=== PATIENT | male | born 1970 | race Caucasian/White ===

== ENCOUNTER 2016-04-12 11:04 | Inpatient (IN) | payer MEDICAID ==
--- NOTE | 2016-04-12 11:38 | EDPHY ---
H & P Stated Complaint: abd pain since yesterday-rlq Time Seen by Provider: 04/12/16 11:37 HPI/ROS: CHIEF COMPLAINT: Abdominal pain HISTORY OF PRESENT ILLNESS: The patient presents to the ED with a 2 day history of right lower quadrant pain. The patient denies vomiting or diarrhea. His pain is worsened over the past day. He denies recent fever cough or congestion. The patient is on medications for anxiety. He also is currently taking Xarelto for a DVT. His last dose of Xarelto was early this morning. The patient denies any dysuria or hematuria. He denies additional complaints. His pain is moderate to severe in nature. REVIEW OF SYSTEMS: A comprehensive 10 point review of systems is otherwise negative aside from elements mentioned in the history of present illness. Source: Patient Exam Limitations: No limitations - Personal History Current Tetanus/Diphtheria Vaccine: Unsure Current Tetanus Diphtheria and Acellular Pertussis (TDAP): Unsure - Medical/Surgical History Hx Asthma: No Hx Chronic Respiratory Disease: No Hx Diabetes: No Hx Cardiac Disease: No Hx Renal Disease: No Hx Cirrhosis: No Hx Alcoholism: No Hx HIV/AIDS: No Hx Splenectomy or Spleen Trauma: No Other PMH: Bipolar, anxiety - Social History Smoking Status: Current every day smoker - Physical Exam Exam: General Appearance: Alert, no distress Eyes: Pupils equal and round no pallor or injection ENT, Mouth: Mucous membranes moist Respiratory: There are no retractions, lungs are clear to auscultation Cardiovascular: Regular rate and rhythm Gastrointestinal: Tenderness to palpation in the right lower quadrant, mild rebound, mild guarding, no peritoneal signs Neurological: A&O, normal motor function, normal sensory exam, normal cranial nerves Skin: Warm and dry, no rashes Musculoskeletal: Neck is supple nontender Extremities: symmetrical, full range of motion Psychiatric: Patient is oriented X 3, there is no agitation Constitutional: Initial Vital Signs Temperature (C) 36.9 C 04/12/16 11:13 Heart Rate 110 H 04/12/16 11:13 Respiratory Rate 20 04/12/16 11:13 Blood Pressure 127/75 H 04/12/16 11:13 O2 Sat (%) 95 04/12/16 11:13 O2 Delivery Mode Room Air Allergies/Adverse Reactions: No Known Allergies Allergy (Unverified 02/08/16 14:12) Home Medications: Medication Instructions Recorded [place] Carbonate ER [Lithobid 300 300 mg PO DAILY 02/08/16 mg (*)] Rivaroxaban [Xarelto] 20 mg PO DAILY 02/08/16 Gabapentin [Neurontin 300 MG (*)] 300 mg PO TID 04/12/16 Ibuprofen [Motrin (*)] 200 - 400 mg PO Q6H PRN 04/12/16 Lurasidone HCl [Latuda] 40 mg PO DAILY 04/12/16 Medical Decision Making - Diagnostics Imaging: CT abdomen pelvis with IV contrast: Findings consistent with acute appendicitis are noted. Study results reported to me by Dr. Gerald Guadarrama. ED Course/Re-evaluation: The patient presents to the ED with 2 days of right-sided abdominal pain, leukocytosis and subjective fevers. The patient is currently anticoagulated with Xarelto for a DVT in his right leg. He does have a history of factor 5 Leiden. The patient does have evidence of appendicitis noted on his CT scan today. The patient did receive IV fluids and 1 mg of IV Invanz. Consultation was made with Dr. Tyler Knapp from General surgery who will evaluate the patient in the emergency department. Update at 3:30 p.m.: Patient has been seen by Dr. Knapp and will be taken to the operating room following a dose PCC to reverse the patient's current anticoagulation. Differential Diagnosis: Differential diagnosis considered includes ileitis, appendicitis, perforation, obstruction, abscess - Data Points Laboratory Results: Laboratory Results 04/12/16 11:25 04/12/16 11:25 04/12/16 04/12/16 11:45 11:25 WBC 17.83 H 10^3/uL (3.80-9.50) RBC 5.15 10^6/uL (4.40-6.38) Hgb 16.4 g/dL (13.7-17.5) Hct 47.4 % (40.0-51.0) MCV 92.0 fL (81.5-99.8) MCH 31.8 pg (27.9-34.1) MCHC 34.6 g/dL (32.4-36.7) RDW 13.1 % (11.5-15.2) Plt Count 257 10^3/uL (150-400) MPV 9.8 fL (8.7-11.7) Neut % (Auto) 86.8 H % (39.3-74.2) Lymph % (Auto) 5.4 L % (15.0-45.0) [place] % (Auto) 7.0 % (4.5-13.0) Eos % (Auto) 0.1 L % (0.6-7.6) Baso % (Auto) 0.3 % (0.3-1.7) Nucleat RBC Rel Count 0.0 % (0.0-0.2) Absolute Neuts (auto) 15.48 H 10^3/uL (1.70-6.50) Absolute Lymphs (auto) 0.96 L 10^3/uL (1.00-3.00) Absolute Monos (auto) 1.25 H 10^3/uL (0.30-0.80) Absolute Eos (auto) 0.01 L 10^3/uL (0.03-0.40) Absolute Basos (auto) 0.05 10^3/uL (0.02-0.10) Absolute Nucleated RBC 0.00 10^3/uL (0-0.01) Immature Gran % 0.4 % (0.0-1.1) Immature Gran # 0.08 10^3/uL (0.00-0.10) PT 24.2 H SEC (12.0-15.0) INR 2.15 H (0.83-1.16) Sodium 140 mEq/L (134-144) Potassium 4.0 mEq/L (3.5-5.2) Chloride 106 mEq/L (97-110) Carbon Dioxide 19 L mEq/l (22-31) Anion Gap 15 mEq/L (8-16) BUN 12 mg/dL (7-23) Creatinine 1.0 mg/dL (0.7-1.3) Estimated GFR > 60 Glucose 162 H mg/dL (70-100) Calcium 9.9 mg/dL (8.5-10.4) Total Bilirubin 0.9 mg/dL (0.1-1.4) Conjugated Bilirubin 0.3 mg/dL (0.0-0.5) Unconjugated Bilirubin 0.6 mg/dL (0.0-1.1) AST 20 IU/L (17-59) ALT 32 IU/L (21-72) Alkaline Phosphatase 62 IU/L (38-126) Total Protein 7.2 g/dL (6.3-8.2) Albumin 4.3 g/dL (3.5-5.0) Lipase 167.0 IU/L (23-300) [place] 0.3 L mEq/L (0.6-1.2) Medications Given: Discontinued Medications Hydromorphone HCl (Dilaudid) 1 mg IVP EDNOW ONE Stop: 04/12/16 13:54 Last Admin: 04/12/16 13:59 Dose: 1 mg Sodium Chloride (Ns) 1,000 mls @ 0 mls/hr IV ONCE ONE PRN Reason: Wide Open Stop: 04/12/16 11:43 Last Admin: 04/12/16 11:48 Dose: 1,000 mls Ertapenem 1 gm/ Sodium (Chloride) 100 mls @ 200 mls/hr IV EDNOW ONE PRN Reason: Protocol Stop: 04/12/16 14:41 Last Admin: 04/12/16 14:58 Dose: 100 mls Ondansetron HCl (Zofran) 4 mg IVP EDNOW ONE Stop: 04/12/16 13:54 Last Admin: 04/12/16 14:00 Dose: 4 mg Departure - Departure Disposition: [facility] Acute Clinical Impression: History of DVT (deep vein thrombosis) Acute appendicitis Qualifiers: Qualifier Code: (K35.3) Acute appendicitis with localized peritonitis Condition: Good
[2016-04-12] MEDS ORDERED: NS 1,000 ML IV ONE ×2 (11:42→15:22)
[2016-04-12 11:45] LABS: % IMMATURE GRANULYOCYTES 0.4 % (0.0-1.1); ABSOLUTE IMMATURE GRANULOCYTES 0.08 10^3/uL (0.00-0.10); ADD DIFF? NO; ADD MORPH? NO; ADD SCAN? NO; ATYPICAL LYMPHOCYTE FLAG 0 (0-99); FRAGMENT RBC FLAG 0 (0-99); HEMATOCRIT 47.4 % (40.0-51.0); HEMOGLOBIN 16.4 g/dL (13.7-17.5); LEFT SHIFT FLG 10 (0-99); LIPEMIA HEMOLYSIS FLAG 90 (0-99); MEAN CELL HEMOGLOBIN 31.8 pg (27.9-34.1); MEAN CELL HEMOGLOBIN CONCENTR. 34.6 g/dL (32.4-36.7); MEAN PLATELET VOLUME 9.8 fL (8.7-11.7); PLATELET CLUMPS FLAG 30 (0-99); PLATELET COUNT 257 10^3/uL (150-400); RED BLOOD CELL COUNT 5.15 10^6/uL (4.40-6.38); RED CELL DISTRIBUTION WIDTH 13.1 % (11.5-15.2)
[2016-04-12 12:01] LABS: ALANINE AMINOTRANSFERASE 32 IU/L (21-72); ALBUMIN 4.3 g/dL (3.5-5.0); ALKALINE PHOSPHATASE 62 IU/L (38-126); ANION GAP 15 mEq/L (8-16); ASPARTATE AMINOTRANSFERASE 20 IU/L (17-59); BILIRUBIN,TOTAL 0.9 mg/dL (0.1-1.4); BILIRUBIN-CONJUGATED 0.3 mg/dL (0.0-0.5); BILIRUBIN-UNCONJUGATED 0.6 mg/dL (0.0-1.1); CALCIUM 9.9 mg/dL (8.5-10.4); CARBON DIOXIDE 19 mEq/l (22-31); CHLORIDE 106 mEq/L (97-110); GLOMERULAR FILTRATION RATE > 60; GLUCOSE 162 mg/dL (70-100); SODIUM 140 mEq/L (134-144); TOTAL PROTEIN 7.2 g/dL (6.3-8.2)
[2016-04-12 12:23] LABS: LITHIUM 0.3 mEq/L (0.6-1.2)
[2016-04-12 12:28] LABS: INR 2.15 (0.83-1.16); PROTIME(PATIENT) 24.2 SEC (12.0-15.0)
[2016-04-12] MEDS ORDERED: IOPAMIDOL (ISOVUE-300) 50 ML VIAL IV ONE (13:17)
[2016-04-12] MEDS ORDERED: ONDANSETRON 4 MG/2 ML VIAL IVP ONE (13:53)
[2016-04-12] MEDS ORDERED: HYDROmorphONE/DILAUDID 1 MG/ML SYR IVP ONE (13:53)
[2016-04-12] MEDS ORDERED: ERTAPENEM 1 GM in NS 100 ML IV ONE (14:12)
--- NOTE | 2016-04-12 14:53 | CT ---
CT Scan of the Abdomen and Pelvis (With Contrast) April 12, 2016 Indication: Right lower quadrant pain for 2 days. Technique: No oral or rectal contrast. 90 mL of Isovue 300 were given intravenously by machine power injection. Multidetector helical CT imaging was performed from the diaphragm to the symphysis pubis. Dose reduction techniques were utilized. Findings: The abnormal appendix, measuring 1.5 cm in diameter, has increased mucosal enhancement and surrounding regional mesenteric edema. Additionally, a loop of ileum adjacent the inflamed appendix has mild wall thickening and increased serosal enhancement. No pneumoperitoneum, abscess, or fistula formation. Mild left-sided constipation. Otherwise normal bowel pattern. The liver, spleen, pancreas, gallbladder, adrenal glands, and kidneys are normal. No hydronephrosis o r ureteral calculi. The urinary bladder is normal. The portal vein is patent. No biliary dilation. The abdominal aorta is normal in caliber. No plaque. Lung bases are clear except for minimal posterior dependent atelectasis. No bone lesions. Impression: 1. Regional inflammation in the right lower quadrant involving the terminal ileum and appendix. Favor appendicitis with reactive inflammation of the ileum. 2. No abscess or evidence of perforation. Comment: Results were discussed with Dr. Darryl Peters at 2:05 p.m. on April 12, 2016.
[2016-04-12] MEDS ORDERED: HEPARIN 5,000 UNIT/0.5 ML SYR ONE (15:52)
[2016-04-12] MEDS ORDERED: ceFAZolin 1 GM/5 ML SYR ONE (15:52)
[2016-04-12] MEDS ORDERED: HUMAN PROTHROMBIN COMPLX IV ONE (16:00)
[2016-04-12] MEDS ORDERED: PROPOFOL/EMULSION 500 MG/50 ML BOTTLE IV ONE (16:16)
[2016-04-12] MEDS ORDERED: fentaNYL 250 MCG/5 ML INJ ONE (16:16)
[2016-04-12] MEDS ORDERED: ROCURONIUM 50 MG/5 ML VIAL ONE ×2 (16:17→17:46)
[2016-04-12] MEDS ORDERED: LIDOCAINE 2% 100 MG/5 ML SYR IVP ONE (16:17)
[2016-04-12] MEDS ORDERED: MIDAZOLAM 2 MG/2 ML VIAL ONE (16:26)
[2016-04-12] MEDS ORDERED: ACETAMINOPHEN 650 MG SUPP PR ONE (17:00)
--- NOTE | 2016-04-12 17:05 | GHP ---
[f rep st] HISTORY AND PHYSICAL DATE OF ADMISSION: 04/12/2016 HISTORY OF PRESENT ILLNESS: The patient presents with acute appendicitis. Yesterday, at 9:30, he woke up and noticed abdominal pain on awakening. He felt it was probably indigestion and notes that it was associated with nausea. For breakfast, he had 2 pieces of toast and tea, which is usual for him. At lunchtime, he had a decreased appetite and ate only mashed potatoes. At approximately 2-3 p.m., the pain moved to the right lower quadrant. He did have a normal dinner and no nausea. The pain increased in the right lower quadrant. It was also increasing in his back, which he attributed to "work." He went to sleep and woke up at approximately 2 a.m. and 4 a.m. secondary to the pain. At approximately 7:30 a.m. today, the pain was 10 times worse than it had been yesterday. He had difficulty standing up straight and complained bitterly of any bumps that were hit when he was riding in the car. His last bowel movement was yesterday. His last meal was at 11 a.m. this morning. He had half of a granola bar, half of a candy bar, and some Gatorade. He has not had a recent upper respiratory tract infection. He has not had any diarrhea. He has not had any travel outside the [place] or antibiotics in the last 6 months. There is no prior abdominal surgery. There are no prior similar symptoms. There is no history of inflammatory bowel disease. SOCIAL HISTORY: He smokes, starting at age 21 to present, 1/2 pack per day. He no longer drinks. ALLERGIES: He has no known drug allergies. PAST MEDICAL HISTORY: He is bipolar and does have anxiety. There is no history of rheumatic fever, tuberculosis, hepatitis, HIV, or transfusions. MEDICATIONS: He takes gabapentin for his anxiety at 300 mg 3 times a day. He takes Latuda, which is a mood stabilizer, 40 mg daily. He takes lithium carbonate 300 mg at bedtime and Xarelto 20 mg daily. PAST SURGICAL HISTORY: He has had no prior surgery. REVIEW OF SYSTEMS: He developed a clot in his calf over a year ago. Evaluation by his senior corporate accountant showed he had a factor V Leiden deficiency. He does were glasses because of his nearsightedness. He complains of a dry right naris. He complains that his arms go to sleep when he is sleeping on his right side or left side. There are no limits on his activities. No history of steroid use. FAMILY HISTORY: His mother is 72, alive and well. His father is 72 and has had cancer, but the patient is unsure as to what type of cancer it was. The patient is followed in by 2 paternal half brothers, age 32 and age 30. There are no bleeding disorders, clotting disorders, or difficulty with anesthesia in the patient's family. PHYSICAL EXAMINATION: He is awake, alert, and complaining of abdominal discomfort. He is tender with cough at McBurney's point at 5 on a scale of 1- 10. Bowel sounds are hypoactive. Obturator and psoas signs are negative. To palpation, left upper quadrant is 1, left mid abdomen is 1, left lower quadrant is 1, epigastrium is 1, periumbilical area is 3, suprapubic area is 4, right upper quadrant is 4, right mid abdomen is 9, right lower quadrant is 9, and it is 2 over the iliac crest. There is no cervical, supraclavicular, axillary or inguinal lymphadenopathy. Skull is normocephalic and atraumatic. He is awake, alert, oriented, and personable. Thyroid is not enlarged. His lungs are clear to auscultation. Cardiac exam shows S1, S2 to be normal. DIAGNOSTIC STUDIES: CT scan shows a prominent appendix which has a hyperemic wall and distention. It is located in the right lower quadrant going from posterior to anterior. His INR is 2.15. His white count is 17.8 with 87% neutrophils. His hematocrit is 47. His platelet count is 257. His glucose is 162. His lithium level is 0.3. IMPRESSION/PLAN: I feel this patient has acute unruptured appendicitis. He is on Xarelto, and there is no perfect antidote at this point. I will use PCC as my best alternative. He will receive Xarelto just prior to surgery. He understands that bleeding may be an issue. I will plan to leave a ANGELA drain in place after surgery. He has received [employer]. /[id number]/MODL MTDD
[2016-04-12] MEDS ORDERED: DEXAMETHASONE 4 MG/ML VIAL ONE (17:46)
[2016-04-12] MEDS ORDERED: ONDANSETRON 4 MG/2 ML VIAL ONE (17:46)
[2016-04-12] MEDS ORDERED: fentaNYL 100 MCG/2 ML INJ ONE ×2 (18:25→19:28)
[2016-04-12] MEDS ORDERED: GLYCOPYRROLATE 0.2 MG/1 ML VIAL ONE (18:38)
[2016-04-12] MEDS ORDERED: NEOSTIGMINE METHYLSULFATE 5 MG/5 ML SYR ONE (18:38)
[2016-04-12] MEDS ORDERED: ONDANSETRON 4 MG/2 ML VIAL IVP PRN (19:17)
[2016-04-12] MEDS ORDERED: KETOROLAC 30 MG/1 ML SDV ONE (19:28)
--- NOTE | 2016-04-12 19:32 | POSTOPPROG ---
Post Op Note Date of Operation: 04/12/16 Surgeon: Rey Knapp Anesthesia: GET(General Endotracheal) Pre-op Diagnosis: acute appendicitis Post-op Diagnosis: acute gtangreneous appendicitis with peritonitis Indication: acute appendicitis Procedure: laparoscopic appendectomy Findings: acute gtangreneous appendicitis with peritonitis Inf/Abcess present in the surg proc area at time of surgery?: Yes Depth: Organ Space (approximately 20cc of purulent fluid was aspirated from pelvis and sent for culture) EBL: Minimal Complications: none Drains: Jai Bejarano (10 Flat ANGELA in pelvis) Specimen(s): appendix - proximal and distal - two specimens
--- NOTE | 2016-04-12 20:16 | GOP ---
[f rep st] OPERATIVE REPORT DATE OF OPERATION: 04/12/2016 SURGEON: Rey Knapp MD ANESTHESIA: General endotracheal. PREOPERATIVE DIAGNOSIS: Acute appendicitis. POSTOPERATIVE DIAGNOSIS: Acute gangrenous appendicitis with peritonitis. PROCEDURE PERFORMED: Laparoscopic appendectomy. FINDINGS: Acute gangrenous appendicitis with peritonitis. ESTIMATED BLOOD LOSS: Minimal. INDICATIONS: Acute appendicitis. DESCRIPTION OF PROCEDURE: The patient was placed on the operating table in supine position. After induction of adequate general endotracheal anesthesia, the abdomen was carefully clipped, prepped and draped. A surgical time-out was carried out and agreed to by all members of the operative team. A curvilinear incision was planned in the inferior umbilical fold. The skin was elevated and incised. The incision was deepened with Bovie electrocautery. A spreading technique was used to expose the right and left anterior rectus sheath, which was elevated with Allis clamps. The fascia was divided in the midline. A pursestring of #0 PDS was placed. An 11/12 disposable Sarath trocar was positioned. Intra-abdominal insufflation was carried out to 15 mmHg at high flow. A 5 mm left lower quadrant port was placed as was a 5 mm suprapubic midline port in the low hypogastrium. On initial examination, there was purulent fluid in the pelvis. This was carefully aspirated and sent for cultures. Irrigation was carried out with heparin and Ancef containing irrigant. The patient was positioned in a 30-degree Trendelenburg position. He was then rotated 5 degrees to the left. There was an intense inflammatory response in the right lower quadrant. The tip of the appendix could be visualized. A careful and tedious dissection was carried out using a careful spreading technique. Adhesions were carefully elevated and transected with the Harmonic Scalpel. The tip of the appendix was quite enlarged and gangrenous. A small amount of leakage was occurring. This was carefully aspirated. At this point, I was able to free enough of the appendix so that I could now transect the involved distal 1/3 with a 35 mm powered Endo-HOUSTON stapler. It was placed in an EndoCatch bag and removed via the umbilical port site. Pneumoperitoneum was re-established. A continuous careful dissection was carried out to free the appendix down to its base on the cecum. The appendix was then elevated, and the appendix, with a cuff of cecum, was transected, again with a second application of the Endo-[place]STON 35 mm powered stapler. This, too, was placed in an EndoCatch bag and delivered. Irrigation was carried out. A total of 1500 cc of irrigation fluid was used. The small bowel was run for approximately 2 feet, and I could not identify a Meckel diverticulum. Hemostasis was excellent. Note was made that this patient had a factor V Leiden deficiency. He had been on Xarelto. He took his last dose at 9 o'clock this morning. He received an appropriate dose of Kcentra as computed by Pharmacy. Inspection showed no evidence of bleeding. There was no evidence of inguinal hernias. His gallbladder looked unremarkable. All irrigation fluid was aspirated. A 10 flat ANGELA drain was placed down in the pelvis and led out through the left lower quadrant 5 mm port site. The skin was closed with a vertical mattress suture of #3-0 silk, and this was also used to secure the drain. The drain was connected to bulb suction. The other ports were removed under direct vision. The infraumbilical midline fascial defect was closed with 1 simple suture of #O PDS at its midpoint. This was now tied, and the pursestring was then tied. This resulted in excellent closure. The wound was carefully inspected for sites of bleeding, and none were identified. Both remaining skin incisions were closed with inverted simple sutures of #4 Vicryl. Mastisol and Steri-Strips were placed. Band-Aids were positioned. 4 x 4's were placed around the drain. The patient was transferred from the OR to recovery in stable and satisfactory condition. FLUIDS: He had 2000 cc preoperatively and 1700 cc of fluid in the operating room. DRAINS: He does have a 10 flat Jai-Bejarano in place. /[id number]/MODL MTDD
[2016-04-12] MEDS: HYDROmorphONE/DILAUDID 1 MG/ML SYR IVP PRN ×2 (20:39→22:13)
[2016-04-12] MEDS: LR 1,000 ML IV SCH (20:40)
[2016-04-12] MEDS: ACETAMINOPHEN 500 MG TAB PO SCH (22:13)
[2016-04-12] MEDS: LITHIUM CARBONATE ER 300 MG TAB PO SCH (22:13)
[2016-04-12] MEDS: GABAPENTIN 300 MG CAP PO SCH (22:14)
[2016-04-13] MEDS: KETOROLAC 30 MG/1 ML SDV IVP SCH ×4 (00:26→18:12)
[2016-04-13] MEDS: ACETAMINOPHEN 500 MG TAB PO SCH ×3 (05:52→21:46)
[2016-04-13] MEDS: HYDROmorphONE/DILAUDID 1 MG/ML SYR IVP PRN ×2 (05:52→20:02)
--- NOTE | 2016-04-13 05:56 | POSTOPPROG ---
[id number] surg proc area at time of surgery?: No
[2016-04-13 06:01] LABS: % IMMATURE GRANULYOCYTES 0.6 % (0.0-1.1); ABSOLUTE IMMATURE GRANULOCYTES 0.11 10^3/uL (0.00-0.10); ADD DIFF? NO; ADD MORPH? NO; ADD SCAN? NO; ATYPICAL LYMPHOCYTE FLAG 0 (0-99); FRAGMENT RBC FLAG 0 (0-99); HEMATOCRIT 40.1 % (40.0-51.0); HEMOGLOBIN 13.4 g/dL (13.7-17.5); LEFT SHIFT FLG 30 (0-99); LIPEMIA HEMOLYSIS FLAG 80 (0-99); MEAN CELL HEMOGLOBIN 31.5 pg (27.9-34.1); MEAN CELL HEMOGLOBIN CONCENTR. 33.4 g/dL (32.4-36.7); MEAN CELL VOLUME 94.4 fL (81.5-99.8); PLATELET CLUMPS FLAG 10 (0-99); PLATELET COUNT 193 10^3/uL (150-400); RED BLOOD CELL COUNT 4.25 10^6/uL (4.40-6.38); RED CELL DISTRIBUTION WIDTH 13.4 % (11.5-15.2)
[2016-04-13 06:19] LABS: ANION GAP 9 mEq/L (8-16); CALCIUM 8.5 mg/dL (8.5-10.4); CARBON DIOXIDE 22 mEq/l (22-31); CHLORIDE 109 mEq/L (97-110); CREATININE 0.9 mg/dL (0.7-1.3); GLOMERULAR FILTRATION RATE > 60; GLUCOSE 107 mg/dL (70-100); POTASSIUM 4.4 mEq/L (3.5-5.2); SODIUM 140 mEq/L (134-144)
[2016-04-13] MEDS: LURASIDONE HCL 20 MG TAB PO SCH (10:16)
[2016-04-13] MEDS: GABAPENTIN 300 MG CAP PO SCH ×3 (10:17→21:47)
[2016-04-13] MEDS: LITHIUM CARBONATE ER 300 MG TAB PO SCH (10:17)
--- NOTE | 2016-04-13 12:24 | SOAPPROG ---
SOAP Progress Note Assessment/Plan: Assessment: VSS, Afebrile, ANGELA sero-sanguinous, WBC still up, Hungry, +BS Plan: Continue antibiotics Check cultures Continue ANGELA Consider re-start Xarelto tomorrow. 04/13/16 12:21 Subjective: Now hungry Objective: Vital Signs Temp Pulse Resp BP Pulse Ox 36.6 C 61 16 92/51 L 95 04/13/16 07:33 04/13/16 07:33 04/13/16 07:33 04/13/16 07:33 04/13/16 07:33 Laboratory Results 04/13/16 05:23 04/13/16 05:23 04/12/16 04/13/16 04/14/16 05:59 05:59 05:59 Intake Total 1000 Output Total 380 Balance 620 PT 24.2 SEC (12.0-15.0) H 04/12/16 11:45 INR 2.15 (0.83-1.16) H 04/12/16 11:45 - Time Spent With Patient Time Spent With Patient: 25 Physical Exam - Physical Exam General Appearance: WD/WN, alert, no apparent distress Neck: non-tender, full range of motion, supple Respiratory: chest non-tender, lungs clear, normal breath sounds Cardiac/Chest: regular rate, rhythm Abdomen: normal bowel sounds, non-tender, soft, other (incisions clean and dry) Male Genitalia: deferred Rectal: deferred Back: Normal inspection Skin: normal color, warm/dry Extremities: normal range of motion, non-tender Neuro/Psych: no motor/sensory deficits, alert, normal mood/affect, oriented x 3 ICD10 Worksheet Patient Problems: Problems Problem Status Diagnosed Acute appendicitis Acute History of DVT (deep vein thrombosis) Acute
[2016-04-13] MEDS: LR 1,000 ML IV SCH (14:04)
[2016-04-13] MEDS: ERTAPENEM 1 GM in NS 100 ML IV SCH (16:46)
[2016-04-14] MEDS: KETOROLAC 30 MG/1 ML SDV IVP SCH ×3 (00:03→11:36)
[2016-04-14] MEDS: HYDROmorphONE/DILAUDID 1 MG/ML SYR IVP PRN (00:09)
[2016-04-14 05:37] LABS: % IMMATURE GRANULYOCYTES 0.4 % (0.0-1.1); ABSOLUTE IMMATURE GRANULOCYTES 0.04 10^3/uL (0.00-0.10); ADD DIFF? NO; ADD MORPH? NO; ADD SCAN? NO; ATYPICAL LYMPHOCYTE FLAG 0 (0-99); FRAGMENT RBC FLAG 0 (0-99); HEMATOCRIT 36.8 % (40.0-51.0); LEFT SHIFT FLG 30 (0-99); LIPEMIA HEMOLYSIS FLAG 80 (0-99); MEAN CELL HEMOGLOBIN 31.7 pg (27.9-34.1); MEAN CELL HEMOGLOBIN CONCENTR. 32.6 g/dL (32.4-36.7); MEAN CELL VOLUME 97.1 fL (81.5-99.8); MEAN PLATELET VOLUME 10.3 fL (8.7-11.7); PLATELET CLUMPS FLAG 0 (0-99); PLATELET COUNT 184 10^3/uL (150-400); RED BLOOD CELL COUNT 3.79 10^6/uL (4.40-6.38); RED CELL DISTRIBUTION WIDTH 13.7 % (11.5-15.2)
[2016-04-14] MEDS: ACETAMINOPHEN 500 MG TAB PO SCH ×2 (05:38→14:28)
--- NOTE | 2016-04-14 09:08 | SOAPPROG ---
SOAP Progress Note Assessment/Plan: Assessment: 45yo male s/p lap appy, gangrenous PE awake alert abdomen ANGELA in place with serous, soft nontender to palpation Plan: home later today if doing well will need to go home with augmentin script. will place in chart later. 04/14/16 09:05 Objective: Vital Signs Temp Pulse Resp BP Pulse Ox 36.9 C 58 L 14 103/65 97 04/14/16 05:21 04/14/16 05:21 04/14/16 05:21 04/14/16 05:21 04/14/16 05:21 Laboratory Results 04/14/16 04:51 04/13/16 05:23 04/13/16 04/14/16 04/15/16 05:59 05:59 05:59 Intake Total 1000 980 Output Total 380 1020 Balance 620 -40 PT 24.2 SEC (12.0-15.0) H 04/12/16 11:45 INR 2.15 (0.83-1.16) H 04/12/16 11:45 ICD10 Worksheet Patient Problems: Problems Problem Status Diagnosed Acute appendicitis Acute History of DVT (deep vein thrombosis) Acute
[2016-04-14 09:20] VITALS: RESP 16
[2016-04-14] MEDS: ERTAPENEM 1 GM in NS 100 ML IV SCH (11:09)
[2016-04-14] MEDS: LITHIUM CARBONATE ER 300 MG TAB PO SCH (11:10)
[2016-04-14] MEDS: LURASIDONE HCL 20 MG TAB PO SCH (11:10)
[2016-04-14] MEDS: GABAPENTIN 300 MG CAP PO SCH ×2 (11:10→18:25)
[2016-04-14 12:13] VITALS: O2SAT 94
--- NOTE | 2016-04-14 14:04 | GDS ---
[f rep st] DISCHARGE SUMMARY REASON FOR ADMISSION: Appendicitis. OTHER DIAGNOSES THIS ADMISSION: Bipolar disorder, anxiety. HOSPITAL COURSE: Patient is an extremely pleasant 45-year-old male, who came to the emergency room w [facility] abdominal pain. Workup yielded findings consistent with appendicitis. The patient had surgery w [facility] Dr. Kanpp on 04/12/2016 and the appendix was found to be gangrenous. The patient is doing quite well today, tolerating regular diet. He has only taken oral Toradol over the last 48 hours for pain . He lives in [facility] and would like to go home. Patient will be discharged with Augmentin 87 5 mg 1 tab p.o. twice daily x5 days, Percocet 5/325 one tab p.o. q.6 hours p.r.n. pain #10. The patient will follow up with Dr. Jennings' office in approximately 10 days, he should call for an appointment. We discussed signs and symptoms of abscess that the patient will be diligen t for. It is okay for him to shower and resume light exercise, but no heavy lifting for 6 weeks. /[id number]/MODL
[2016-04-14 14:16] VITALS: BP 116/77; PULSE 46; TEMP 98.6
== END 2016-04-14 18:26 | disposition home or self-care (01) | DRG 340 ==
LOC: OBSVTOIN 19:17 → F1N 20:09
PROVIDERS: ADMIT Surgery; ATTEND Surgery
PROC: 0DTJ4ZZ Resection of Appendix, Percutaneous Endoscopic Approach (ICD-10-PCS; principal; 2016-04-12 17:20)
DX: K35.2 Acute appendicitis with generalized peritonitis (principal); F17.210 Nicotine dependence, cigarettes, uncomplicated; F31.9 Bipolar disorder, unspecified; Z86.718 Personal history of other venous thrombosis and embolism; Z79.01 Long term (current) use of anticoagulants
CPT/HCPCS: 96365; C9132; J1100; J1170; J1335; J1885; J2001; J2250; J2405; J2704; J2710; J3010; Q9967

== ENCOUNTER 2017-12-17 22:35 | Inpatient (IN) | payer SELFPAY ==
[2017-12-17] MEDS ORDERED: OLANZapine 10 MG/2 ML VIAL IM ONE (22:38)
--- NOTE | 2017-12-17 22:40 | EDPHY ---
H & P Source: Patient, Police, EMS - Medical/Surgical History Hx Asthma: No Hx Chronic Respiratory Disease: No Hx Diabetes: No Hx Cardiac Disease: No Hx Renal Disease: No Hx Cirrhosis: No Hx Alcoholism: No Hx HIV/AIDS: No Hx Splenectomy or Spleen Trauma: No Other PMH: Bipolar, anxiety - Social History Smoking Status: Current every day smoker Time Seen by Provider: 12/17/17 22:38 HPI/ROS: HPI CHIEF COMPLAINT: Aggressive, agitated, combative behavior HISTORY OF PRESENT ILLNESS: 47-year-old male, unknown medical history presents emergency room for bizarre, aggressive, agitated behavior. The patient was found in the [employer] [place] store off [facility] running through the book store acting bizarre and screaming. Please make contact with him and had to put him in handcuffs and was brought to the emergency room by EMS. Upon arrival to the emergency room the patient is screaming, agitated, using profanities. Appears to be under the influence of a substance. Past Medical History: Unknown medical history Past Surgical History: Unknown surgical history Social History: Unknown Family History: Unknown ROS REVIEW OF SYSTEMS: Limited due to patient's mental state. Exam Constitutional agitated behavior, screaming, triage nursing summary reviewed, vital signs reviewed, awake/alert. Eyes normal conjunctivae and sclera, EOMI, PERRLA. HENT normal inspection, atraumatic, moist mucus membranes, no epistaxis, neck supple/ no meningismus, no raccoon eyes. Respiratory clear to auscultation bilaterally, normal breath sounds, no respiratory distress, no wheezing. Cardiovascular rate normal, regular rhythm, no murmur, no edema, distal pulses normal. Gastrointestinal soft, non-tender, no rebound, no guarding, normal bowel sounds, no distension, no pulsatile mass. Genitourinary no CVA tenderness. Musculoskeletal no midline vertebral tenderness, full range of motion, no calf swelling, no tenderness of extremities, no meningismus, good pulses, neurovascularly intact. Skin pink, warm, & dry, no rash, skin atraumatic. Neurologic screaming, agitated moves all 4 extremities equally, motor intact, sensory intact, CN II-XII intact, normal cerebellar, normal vision, normal speech. Psychiatric acute agitation. Heme/Lymph/Immune no lymphadenopathy. Differential Diagnosis: Includes but is not limited to in a particular order underlying psychiatric illness, acute precious, drug intoxication, excited delirium Medical Decision Making: Plan for this patient IV establishment, blood draw, drug screen, alcohol level, 10 mg IM Zyprexa. Re-evaluate. Re-evaluation: Upon review of old medical records patient has history anxiety. Additionally on his medication list he had a history of lithium. Unclear if he has history of bipolar. It is possible with his aggressive, agitated behavior this is precious. I have ordered him 10 mg IM Zyprexa. Per medical notes in 2016 has a history of bipolar disorder, anxiety. 2345: Patient placed on M1 hold due to acute psychosis. Patient is now calmer at this time after 10 mg IM Zyprexa. 1254AM: Patient ran out of the ER room 19, agitated, psychotic. 10 mg IM Haldol has been ordered. 0700AM: Signed over to Dr. David at 7am. Patient was psychotic, got haldol /zyprexa, Pending Eval. (Reagan Pratt) Constitutional: Initial Vital Signs Heart Rate 101 H 12/17/17 22:45 Respiratory Rate 22 H 12/17/17 22:45 Blood Pressure 149/95 H 12/17/17 22:45 O2 Sat (%) 99 12/17/17 22:45 O2 Delivery Mode Room Air Allergies/Adverse Reactions: No Known Allergies Allergy (Unverified 02/08/16 14:12) Home Medications: Medication Instructions Recorded [place] [facility] [Lithobid 300 300 mg PO DAILY 02/08/16 mg (*)] Rivaroxaban [Xarelto] 20 mg PO DAILY 02/08/16 Gabapentin [Neurontin 300 MG (*)] 300 mg PO TID 04/12/16 Ibuprofen [Motrin (*)] 200 - 400 mg PO Q6H PRN 04/12/16 Lurasidone HCl [Latuda] 40 mg PO DAILY 04/12/16 Amoxicillin/Clavulanate Pot 875 mg PO BID #10 tab 04/14/16 [Augmentin 875 MG TAB (*)] Medical Decision Making ED Course/Re-evaluation: I took over care of this patient at 7:00 a.m.. This patient is on an M1 hold for acute psychosis. The patient received Haldol and Zyprexa secondary to psychotic behavior and agitation. The patient is awaiting behavioral health evaluation. 12:00 p.m., the patient has been seen and evaluated by Behavioral Health. The patient will be admitted and transferred to [address] [place] [address] in the care of Dr. Freid. There have been no issues under my care with this patient. I have filled out the appropriate transfer paperwork. Patient's remaining emergency department course under my care has been uneventful. The patient was transferred to [address] [place] [address] in stable condition. (Corrina Crawford) - Data Points Laboratory Results: Laboratory Results 12/17/17 22:30 12/17/17 22:30 12/17/17 08:32 Urine Opiates Screen NEGATIVE (NEGATIVE) Urine Barbiturates NEGATIVE (NEGATIVE) Ur Phencyclidine Scrn NEGATIVE (NEGATIVE) Ur Amphetamine Screen NEGATIVE (NEGATIVE) U Benzodiazepines Scrn NEGATIVE (NEGATIVE) Urine Cocaine Screen NEGATIVE (NEGATIVE) U Marijuana (THC) Screen NEGATIVE (NEGATIVE) Medications Given: Discontinued Medications Haloperidol Lactate (Haldol Injection) 10 mg IM EDNOW ONE Stop: 12/18/17 00:55 Last Admin: 12/18/17 00:56 Dose: 10 mg Sodium Chloride (Ns) 1,000 mls @ 0 mls/hr IV ONCE ONE PRN Reason: Wide Open Stop: 12/17/17 22:42 Last Admin: 12/17/17 23:36 Dose: Not Given Olanzapine (Zyprexa Injection) 10 mg IM EDNOW ONE Stop: 12/17/17 22:39 Last Admin: 12/17/17 22:50 Dose: 10 mg Departure - Departure Disposition: [facility] IP Clinical Impression: Psychosis Qualifiers: Psychosis type: other Qualified Code(s): F28 - Other psychotic disorder not due to a substance or known physiological condition Referrals: Patient,NotPresent [Primary Care Provider] - As per Instructions
[2017-12-17] MEDS ORDERED: NS 1,000 ML IV ONE (22:41)
[2017-12-17 22:57] LABS: PLATELET COUNT 268 10^3/uL (150-400)
[2017-12-18] MEDS ORDERED: HALOPERIDOL LACT 5 MG/ML INJ ONE (00:54)
[2017-12-18] MEDS ORDERED: HALOPERIDOL LACT 5 MG/ML INJ IM ONE (00:54)
--- NOTE | 2017-12-18 10:21 | ASMTLCPROG ---
Notes Note: Notes: Checked with [facility] - pt is not an open client. Date Signed: 12/18/2017 10:20 AM Electronically Signed By:Elisabet Martinez
--- NOTE | 2017-12-18 12:28 | ASMTTLCEVL ---
TLC Evaluation - Basic Information Evaluation Start Date and 12/18/2017 10:00 AM Time Hospital Status Answers: M1 Hold 72-hr M1 Hold Start Date 12/17/2017 11:30 PM and Time Patient statement Notes: "Because they don't want me to hurt myself." Narrative Notes: This 47 y/o single male was brought to the ED by the police where he wa placed on anM-1 hold. He was apparently at a local book store - climbing on shelves and acting in a bizarre and inappropriate manner. He was initially combative and out of control and required restraints. He was medicated with zyprexa and then IM Haldol. He was able to calm down and fall asleep. Upon interview, pt is very drowsy and has slurred speech. He also appears to be responding to internal stimuli and reports having hallucinations of his friends in the room and auditory hallucination with a voice telling him to relax. He denies suicidal, parasuicidal, homicidal ideation, urges or behaviors. Pt is having difficulty staying on topic. I spoke with his stepfather (Nelson Mayen [phone]) for some verification of pt's history, Diagnosis History Notes: Pt has a history of Bi-Polar Disorder since late adolescence. He has received most of his recent treatment at [facility]. He stopped taking his psychiatric medications in October because he didn't think they were doing him any good( lithium, lamictal and gabapentin). He has become increasingly manic and psychotic since then by report of his stepfather. He lives with his parents in [place] but was recently staying with a friend in [place] and father suspects pt was using drugs. Prior suicide attempts Notes: Denied Prior hospitalizations Notes: He reports that he was hospitalized on [address] at [place] when he visited his aunt and was manic but couldn't remember when. Treatment Responses Notes: Pt reportedly does well when on his meds. 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 History of violence Notes: none - though was combative last night requiring restraints when admitted to [facility]. Therapist: Pete Wallace Psychiatrist: Dr Sav Wallace Medications (name, dosage, route, freq uency) Notes: [place]; lamictal; gabapentin - dose unknown - last taken in mid-October according to pt Pt also takes a daily blood thinner Allergies/Reaction Notes: Denies Sleep Notes: Has not been sleeping for several days Appetite Notes: Normal Medical/Surgical history Notes: Pt has a history of DVT and is on a daily blood thinner Substance use history (frequency, intensity, his tory, duration) Notes: Pt has a history of AlcoholAbuse. He reports that he drinks a smal amount daily - stepfather reports that his alcohol use has been longstanding and prbleatic. In addition, pt repots trying many hallucinogens, cocaine and crystal meth - sloan in the past month. Family composition Notes: Pt lives with his mothr and stepfather in [place]. Pt's father and stepmother live in [facility] Need for family Answers: Yes participation in patient's care Family psychiatric/substance abuse history Notes: Pt reports that"everyone " in his paternal and maternal families have psychiatric and substance abuse issues. Developmental history Notes: Pt was raised and attended schools in [facility]. He went to a private high school and graduated from with a degree in Economics Abuse concerns Answers: None Marital status/children Notes: Pt is single an says he has 2 children from whom he is estranged Living situation Notes: Lives in [place] with his mother and stepfather Sexual history/orientation Notes: Heterosexual Peer support/family strengths Notes: Pt reports that he has friends. 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 Notes: NA Legal Notes: Denies Denominational/Spiritual Notes: Pt is ot affiliated Leisure Notes: Plays golf Collateral Notes: Stepfather - Nelson Mayen [phone] Patient's strengths Answers: Intelligent (Please select at least TWO strengths): Supportive Family Willingness TLC Evaluation - Mental Status Exam Appearance: Answers: Disheveled Eye Contact: Answers: Absent Mood: Answers: Labile Affect: Answers: Confused Expansive Behavior: Answers: Cooperative Fatigued Sedated Speech: Answers: Illogical Unclear Rambling Slurred Thought Process: Answers: Organized Disoriented Confused Insight: Answers: Poor Judgement: Answers: Poor Manic Signs/Symptoms Answers: Distractibility Racing Thoughts Hallucinations: Answers: Auditory Visual Pt reported to have Answers: No suicidal/self-injuring ideation/behavior? Pt reported to be making Answers: No suicidal/self-injuring threats? Pt reported to have Answers: Yes aggression/assault ideation/behavior? Pt reported to be making Answers: No aggression/assault threats? Pt exhibits inability to Answers: Yes care for self/grave disability? History of serious Answers: No physical harm to self/others while in treatment setting? TLC Evaluation - Suicide/Homicide Risk Suicide Risk Factors: Answers: < 20 or > 40 Years of Age Alcohol/Heavy Drug Use Bipolar Disorder Psychotic Disorder Single Homicide/violence risk Answers: None factors: Current Suicidal Answers: No Ideation? Current Suicidal Ideation Answers: No in the Past 48 Hours? Current Suicidal Ideation Answers: No in the Past Month? Suicide Internal Answers: None Protective Factors: Suicide External Answers: Positive Therapeutic Protective Factors: Relationships Ranking of patient's Answers: Low suicidal risk: Ranking of patient's Answers: Low homicidal risk: TLC Evaluation - Wrap-up BDI Total Score: 0 BDI Question #2 Score: 0 BDI Question #9 Score: 0 AXIS I Diagnosis (include DSM-V and ICD-10 codes), must also be entered in [employer], which is the source of truth. Notes: 296.43 (F31.13) Bi-polar I disorder, most recent episode, Manic Evaluation End Date and 12/18/2017 12:10 PM Time (HH:PIERO): Date Signed: 12/18/2017 12:07 PM Electronically Signed By:Elisabet Martinez
--- NOTE | 2017-12-18 12:32 | ASMTLCPROG ---
Notes Note: Notes: Pt has been accepted to [facility] by Dk Morejon APN. Left message for hospitalist and will remind ED Nurse to order medication reconciliation. Date Signed: 12/18/2017 12:11 PM Electronically Signed By:Elisabet Martinez
--- NOTE | 2017-12-18 12:40 | ASMTTCLDSP ---
TLC Discharge Disposition Disposition: Answers: Admit Disposition Notes: Notes: In consultation with the EDMD and the on-call psychiatric Nurse Practitioner Noe BURROWS pt appears to meet the 27-65 criteria requiring in-pt psychiatric hospitalization as pt appears to be gravely disabled. Was patient given the Answers: Not applicable Inpatient Behavioral Health Prohibited Belongings List while in the ED? For inpatient Reynold Gutierrez MD admission, the following psychiatrist agreed to accept patient for admission to Behavioral Health ([facility]): Type of Hold: Answers: M1/72-hour Hold Hold initiated by: Answers: ED Physician Date Signed: 12/18/2017 12:21 PM Electronically Signed By:Elisabet Martinez
--- NOTE | 2017-12-18 13:58 | GHP ---
DATE OF ADMISSION: 12/17/2017 CHIEF COMPLAINT: Agitation. HISTORY OF PRESENT ILLNESS: The patient is a 47-year-old male who was found behaving bizarrely and a ggressive with agitated behavior. He was brought to the emergency room for further evaluation. Lizbeth ent did receive some medications during this emergency evaluation. He has been evaluated by [facility] and will be admitted to the Behavioral Health Unit for further medical management. The pat ient was not willing to answer questions in depth and cooperate, so history was obtained from previou s charts and assessment evaluation. PAST MEDICAL HISTORY: Unknown. Patient states that he has medical problems and takes medications bu t is unwilling to specify. PAST SURGICAL HISTORY: Patient confirms he has had surgery in the past but unwilling to specify. SOCIAL HISTORY: Unknown. The patient is unwilling to provide information. A current every day smoke r per chart. FAMILY HISTORY: Unknown. REVIEW OF SYSTEMS: Limited. The patient denies any nausea, vomiting, or diarrhea. He denies any fe celi, sweats, or night chills. PHYSICAL EXAM: GENERAL: The patient was alert. VITAL SIGNS: Afebrile at 36.4, pulse is 60, respir atory rate was 14, blood pressure was 139/86. He was saturating 99% on room air. HEENT: Normocepha lic, atraumatic. Mucosal membranes were moist. Pupils equal, round, reactive to light. NECK: Supp le. RESPIRATORY: The patient had no respiratory distress. There was no audible wheezing or coughin g. CARDIOVASCULAR: Regular rate identified. GASTROINTESTINAL: No distention. EXTREMITIES: Patie nt moved all 4 extremities. SKIN: Without rashes or lesions identified. Atraumatic. PSYCHIATRIC: Acute agitation. ALLERGIES: The patient denies. MEDICATIONS: Patient confirms he is normally taking medications but does not clarify. His chart in the past has noted lithium. LABORATORY EVALUATIONS: Benign. ASSESSMENT AND PLAN: Mr. Serrano is a 47-year-old male brought to the emergency room by the police secondary to agitated, bizarre behavior. He was evaluated and he will be admitted to the inpatient psychiatric unit for further management of his underlying psychiatric condition. Tobacco abuse. Rikki otine patch has been offered. Cessation has been encouraged. /[id number]/MODL
[2017-12-18] MEDS ORDERED: MAGNESIUM HYDROXIDE 30 ML UDCUP PO PRN (14:45)
[2017-12-18] MEDS ORDERED: MAG HYDROX/AL HYDROX/SIMETH 30 ML UDCUP PO PRN (14:45)
[2017-12-18] MEDS ORDERED: ACETAMINOPHEN 325 MG TAB PO PRN (14:45)
[2017-12-18] MEDS: NICOTINE POLACRILEX 2 MG GUM B PRN ×2 (16:05→20:24)
--- NOTE | 2017-12-18 19:09 | BAPA ---
DATE OF SERVICE: 12/18/2017 CHIEF COMPLAINT: "I don't want anything. I don't want any medications. I don' t need medications. I do not want to see you." The patient refuses to meet with this FILING MACHINE OPERATOR for a psychiatric assessment and history. HISTORY OF PRESENT ILLNESS: From the ED note dated 12/17/2017, at 2238, patient was aggressive, agitated, with combative behavior. Patient presented to the emergency room with unknown medical history and presented bizarre, aggressive, and agitated behavior. The patient was found in the [place] bookstore off [facility] running through the bookstore acting bizarre and screaming. Police made contact with him and had to put him in handcuffs, and he was brought to the emergency room by EMS. Upon arrival to the emergency room , the patient was screaming, agitated, using profanities. The patient appeared to be under the influence of a substance. From the [facility] evaluation, dated 2017, the patient was placed on an M1 hold at 12/17/17 at 11:30 p.m. Patient reported to the [facility] chair post machine operator "because they don't want me to hurt myself." Patient was apparently at a local bookstore climbing on shells and acting in a bizarre and inappropriate manner. Patient was initially combative and out of control and required restraints. Patient was medicated with Zyprexa and then IM Haldol. Patient was able to calm down and fell asleep. Upon interview, patient was drowsy with slurred speech. Patient appeared to be responding to internal stimuli and reported having hallucinations of his friends in the room and auditory hallucinations with the voice telling him to relax. Patient denied suicidal, parasuicidal, homicidal ideation, urges, or behaviors. Patient was tangential and had difficulty staying on topic during the interview. [facility] chair post machine operator spoke with patient's stepfather to gather collateral on the patient's history. PAST PSYCHIATRIC HISTORY: From the [facility] evaluation, dated 12/18/17, the patient has a history of bipolar disorder since late adolescence. The patient received most of his recent treatment at [facility]. Patient stopped taking his psychiatric medications in October, because he did not think they were doing him any good. Patient was taking lithium, Lamictal, and gabapentin at that time. Patient has become increasingly manic and psychotic since then, as reported by patient's stepfather. Patient lives with his parents in [place] but was recently staying with a friend in [place], and father suspects patient was using drugs. Patient reports that he was hospitalized on [place] at [place] when he visited his aunt and was manic but could not recall when he was hospitalized. 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 ALLERGIES: No known drug allergies. CURRENT MEDICATIONS: Zyprexa Zydis 10 mg p.o. q.4 hours p.r.n. for acute agitation and psychosis, Ativan 0.5-1 mg p.o. q.6 hours p.r.n. for acute agitation. PAST MEDICAL HISTORY: From the [facility] evaluation, patient has a history of DVT and is on a daily blood thinner. Undetermined when patient was last prescribed and taking as prescribed. Obtain further medical history from patient when appropriate. Consider starting blood thinner after repeat liver function test, and ruling-out liver disease. SOCIAL HISTORY: Patient lives with his mother and stepfather in [place]. Patient's father and stepmother live in [place], [place]. Patient was raised and attended schools in [place], [place]. He went to a private high school and graduated from with a degree in economics. Patient is single and says he has 2 children from whom he is estranged. Patient reports he has friends. Mother and Stepfather are supportive and involved. Patient's highest level of education is college graduate. 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 Patient describes his sexual orientation as heterosexual. Patient reports he is not affiliated with any rastafarian or spiritual practice. Patient reports his leisure is playing golf. SUBSTANCE USE HISTORY: Patient has a history of alcohol abuse. Patient reports that he drinks a small amount daily. Stepfather reports that his alcohol use has been long-standing and problematic. In addition, patient reports trying many hallucinogens, cocaine, and crystal meth. Patient reports no use in the past month. FAMILY PSYCHIATRIC HISTORY: From the [facility] evaluation, the patient reports that "everyone in his paternal and maternal families have psychiatric and substance abuse issues." ADMISSION LABS AND STUDIES: From 12/17/17, CBC within normal limits except absolute monocytes were elevated at 0.95. Chemistry from 12/17/17, within normal limits except carbon dioxide was low at 19. Anion gap was elevated at 17. Liver function from 12/18/17, within normal limits except AST was elevated at 424, and ALT was elevated at 147. Toxicology screen from 12/17/17, was negative for all substances of abuse. [place] level was less than 0.2. Ethyl alcohol was elevated at 15. MENTAL STATUS EXAM: The patient is a well-nourished male looking stated chronological age. Attire is inappropriate. Dress is hospital garb and is disheveled. Grooming status is inappropriate and disheveled. Ambulation is independent. Gait is normal and coordinated. Posture is abnormal and slumped. Eye contact is inappropriate and avoided. Motor activity is appropriate with purposeful, organized, coordinated movements, with no involuntary movements noted. Attitude is uncooperative and defensive and guarded. Patient appears disinterested and does not relate well to this interviewer. Language production is unspontaneous. Rate is hesitant. Latency of response is prolonged. Articulation is clear. Patient reports mood as good with constricted, flat, incongruent affect. Patient's thought processes nonlinear, illogical, disorganized, tangential. Patient does not report suicidal, homicidal thoughts, ideas, or plans. Patient does not report auditory or visual hallucinations. Patient denies delusions. Patient does not appear to be attending to internal stimuli at this time. Patient is oriented to person and place. Patient's attention and concentration are poor. Insight and judgment are poor. Unable to appropriately assess cognitive function at this time. Patient does not report undesirable side effects from the current medications. DIAGNOSIS: Unspecified psychosis. FORMULATION: The patient is a 47-year-old male, single, living in [place], [place], who presents to the hospital involuntarily due to being gravely disabled. The patient requires continued inpatient care because of current psychosis. Patient presents with problems of psychosis that have been steadily increasing over the past several days. Patient's life has been affected by these problems, including the crisis that led to this hospitalization. The onset or exacerbation of symptoms is unknown at this time. Patient has a past psychiatric history of bipolar disorder that has been well controlled with lithium, Lamictal, and gabapentin in the past. Based on the patient's history and current presentation, his diagnosis is unspecified psychosis. Patient is at a high suicide safety risk due to current psychosis. Protective factors while hospitalized include ongoing safety checks, active involvement in treatment, and support from our treatment team. Patient could benefit from inpatient hospitalization for safety, crisis stabilization, and medication evaluation. PLAN: (1) Psychotropic medications: Continue current medications. No other medication changes at this time as more time is needed to determine ongoing tolerability and efficacy. Plan is to continue to observe patient for response and side effects from medications, and ongoing monitoring and evaluation. (2) Review with patient informed consent and recommendations for psychotropic medication treatment listed below (3) Labs: repeat liver function test 12/19/17, A1c, fasting lipid panel (4) Therapy: continue milieu and group therapy (5) Further investigation including gathering information from patients relatives and review of past case records to inform treatment plan. (6) Safety/Wellness plan and follow-up outpatient appointments to be established prior to discharge. Next steps are for patient to meet with social worker palliative care to plan a safe discharge plan and establish outpatient services for ongoing treatment. (7) Confer with inpatient treatment team regarding treatment plan. (8) Legal status: M1 (9) Consider discharge next week if patient is in stable condition, safe, and has a safe discharge plan. ESTIMATED LENGTH OF STAY: 5-7 days PSYCHOTROPIC MEDICATION TREATMENT INFORMED CONSENT and RECOMMENDATIONS: Review nature of condition, diagnosis, and prognosis. Review nature and purpose of psychotropic medication treatment. Review type of psychotropic medications being ordered. Review risk and benefits of psychotropic medication treatment. Review probable length of time will need to take medications. Review risk and benefits of not undergoing psychotropic medication treatment. Review alternative treatments to psychotropic medications. Review psychotropic medications contraindications, drug-drug interactions, side effects, and importance of reporting any side effects to a psychiatric provider or nurse during inpatient hospitalization, and upon discharge to patients psychiatric outpatient provider, primary care provider, or other health social worker palliative care. Review importance of asking a nurse, psychiatric provider, or primary care provider any questions or problems concerning the psychotropic medications. Verify patient understands the information that has been provided, and understands, accepts, and agrees to psychotropic medications. Review patients safety plan and importance of patient to communicate to staff while hospitalized if patient is ever a danger to self/others, or unable to care for self, and upon discharge, the importance for patient to contact [facility] or [facility], or go to the nearest emergency room, if patient is ever a danger to self/others, or unable to care for self. Recommend that upon discharge patient establish medication management treatment with a psychiatric provider, establishes routine therapy appointments, and follow-up with primary care provider. Verify patient understands and agrees to these recommendations. /[id number]/MODL MTDD
[2017-12-18] MEDS: LORazepam 0.5 MG TAB PO PRN (19:44)
[2017-12-18] MEDS ORDERED: IBUPROFEN 600 MG TAB PO ONE (20:08)
[2017-12-18] MEDS: IBUPROFEN 600 MG TAB PO PRN (20:24)
[2017-12-19] MEDS: IBUPROFEN 600 MG TAB PO PRN ×3 (09:17→21:11)
[2017-12-19] MEDS: LORazepam 0.5 MG TAB PO PRN ×3 (09:21→21:11)
[2017-12-19] MEDS: NICOTINE POLACRILEX 2 MG GUM B PRN ×6 (09:24→21:22)
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
[2017-12-19] MEDS: OLANZapine DISINTEGR 10 MG TAB PO PRN (12:31)
--- NOTE | 2017-12-19 13:58 | ASMTCMCOM ---
CM Note CM Note Notes: Pt. and CC completed MTP and placed in chart. Pt. denies any current legal issues. Pt. reports drinking alcohol "all the time", adding he wants to drink as soon as possible. Pt. stated he wants to continue with his alcohol use. Pt. stated he smokes THC "my whole life", adding he uses all forms of THC, including dabbing. Pt. stated he wants to continue with his THC use. Pt. stated he was hospitalized "a long time ago in [place]". Pt. stated he was diagnoses with Bipolar 1 disorder, which he disagrees with. Pt. stated no medication helps. Pt. stated only alcohol and drugs help him. Pt. denied SI, HI, AVH and paranoia. Pt. stated he wishes he had hallucinations right now. Pt. presents as pressured, possible internal stimuli, disorganized, with poor eye contact, only speaking briefly with staff and lacking insight. Staff report pt. sleeping 7 hours. Date Signed: 12/19/2017 01:57 PM Electronically Signed By:Riri Sparks
--- NOTE | 2017-12-19 14:31 | PDMN ---
Medical Necessity Medical necessity: Pt meets inpt criteria per MD order and [facility]-011, Other Psychotic Disorders, Adult: Inpatient Care, 3 days. 47 y/o with unspecified psychosis admitted on M1 Hold due to being gravely disabled requiring inpt psychiatric hospitalization b/c of current psychosis.
[2017-12-20] MEDS: IBUPROFEN 600 MG TAB PO PRN ×4 (03:30→22:09)
[2017-12-20] MEDS: NICOTINE POLACRILEX 2 MG GUM B PRN ×12 (04:27→22:05)
[2017-12-20] MEDS: RIVAROXABAN 20 MG TAB PO SCH (08:21)
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
[2017-12-20] MEDS: LORazepam 0.5 MG TAB PO PRN ×2 (16:26→22:10)
[2017-12-20] MEDS: lamoTRIgine 25 MG TAB PO SCH (22:04)
[2017-12-20] MEDS: GABAPENTIN 100 MG CAP PO SCH (22:04)
--- NOTE | 2017-12-20 22:54 | SOAPPROG ---
SOAP Progress Note Assessment/Plan: Assessment: 47yo CM with hx BMD 1 BIB BPD on M-1 for inappropriate, bizarre behaviors, combative, ooc and required restraints, zyprexa and IM haldol. Has been manic, presumed using substances but Utox neg except EtOH. Hx of treatment at [facility] with Li, Lamictal and Gabapentin, noncompliant with meds since October. 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 12/19/17 11:31 States he didn't know who his provider is, had refused interview yesterday. had received IM meds in ER Reports he is in hospital "to take a break,to calm down, and make sure I'm not drinking too much...I'm starting my own company Thursday, [employer], after many years of working on it..." Got admitted also b/c playing "catch me if you can', "he caught up to me in a bookstore, things went too far and the home advisor were called." States only had 1 martini prior to admission. cc also got info that pt decided to confront his boss last week at urging of a friend who apparently is not a good influence on him; this may have resulted in job loss or jeopardized his last commission check. States he was on Veblen until last year which caused thyroid problems, more recently just on Lamictal and Gabapentin. Stopped taking them 6wks ago because "car broke down" and couldn't access them, apparently NOT plan of outpt provider in [place] but all agreed would follow and see how doing off meds. I made a safety plan with them and every morning I wake up and ask myself if I am having any manic symptoms. I am now in the maintenance phase of my bipolar, no medications. Since d/c meds "I felt much better, more productive, exercising, doing yoga, walking the dog..." Does believe BMD is correct dx for him, "100% I'm bipolar". casually dressed, good eye contact, appears tired or medicated, speech articulate, nml rate, mood "I feel wonderful", affect full but tired, tp/tc- rambling, minimizing precipitants to admission as not a big deal, just a game they were playing (despite reminded police involved, pt medicated IM in ER including restraints), +grandiose, no paranoia noted, denied AH/VH or SI/HI. insight good into having BMD but poor in inability to recognize decline since off meds and in maintaining no need for meds, jdgmt- poor. cognition intact. PLAN: -M-1 exp 12/20 at 2330 -refuses offer to restart any of his previously scheduled medications, offer prn zyprexa, ativan -collateral from family, [facility], pt prefers to d/w his outpt providers in [place] 12/20/17 18:03 slept 5.5hr. c/o L rib pain due to injury prior to admission. inappropriate personal space boundaries, reported EtOH cravings but with stable VS. cc obtained more collateral- refer to notes for details. Apparently was stable on meds for 2-3 yrs, declining since d/cd meds 2mo ago, now with no place to live, parents refuse to let him return, likely lost his job, and manic behaviors. pt focused on only wanting his med for dx of genetic clotting d/o, Xarelto unable to answer why not for BMD when he yesterday acknowledged also with this dx. just feels better off meds. admits to manic episodes off Veblen in past, and [facility] on meds "helped me get my life back together b/c I followed their directions" over past 3 years. States this but with no insight into how this all seems to be falling apart again off meds. Maintains he had a thyroid problem with Veblen, and only wants to stay healthy with "food, water and exercise." mood "great", affect full, no ah/vh or si/hi. tp/tc-somewhat argumentative and defensive +grandiose, no insight, poor jdmt. Discussed options due to M-1 expiring tonight, including vol, d/c or STC. Pt would like to have his girlfriend pick him up at midnight. Does not want to stay, wants no meds. Placed on STC . Informed of right to 3rd constitution party notification and legal representation. Pt not happy, began taking notes. Later called his girlfriend, then returned with paper he wrote out committing to restart Lamictal and Gabapentin only. Informed Veblen or VPA or an atypical AP would be better for BMD but pt refused any other options. Would like to have his [facility] team t/w providers here about his treatment and meds tomorrow. But would like to start Lamictal and Gabapentin, states was on 100mg tid of latter. PLAN: -STC -collateral from [facility] tomorrow -Start Lamictal 25mg and Gabapentin 100mg TID which are the 2 meds on which he most recently reports taking. Veblen preferable or Depakote. pt refuses. -refer to cc notes for collateral already obtained from friend/family Objective: Vital Signs Temp Pulse Resp BP Pulse Ox 36.6 C 76 16 117/79 98 12/19/17 06:00 12/20/17 06:00 12/20/17 06:00 12/20/17 06:00 12/20/17 06:00 - Time Spent With Patient Time Spent With Patient: 35min - Pending Discharge Pending Discharge Within 24 Hours: No Pending Discharge Within 48 Hours: No ICD10 Worksheet Patient Problems: Problems Problem Status Onset Alcoholic liver disease, unspecified Acute Psychosis Acute Acute appendicitis Acute History of DVT (deep vein thrombosis) Acute
[2017-12-21] MEDS: NICOTINE POLACRILEX 2 MG GUM B PRN ×9 (05:45→19:19)
[2017-12-21] MEDS: LORazepam 0.5 MG TAB PO PRN ×2 (05:45→15:57)
[2017-12-21] MEDS: GABAPENTIN 100 MG CAP PO SCH ×4 (07:31→22:07)
[2017-12-21] MEDS: RIVAROXABAN 20 MG TAB PO SCH (07:31)
[2017-12-21] MEDS: IBUPROFEN 600 MG TAB PO PRN ×3 (07:31→19:22)
[2017-12-21] MEDS ORDERED: DIVALPROEX ER 500 MG TAB PO SCH (09:00)
--- NOTE | 2017-12-21 09:13 | SOAPPROG ---
SOAP Progress Note Assessment/Plan: Assessment: Bipolar I Disorder, severe, most recent precious, with anxious distress, complicated by substance use. Alcohol use disorder, severe (see subjective/ objective note). Patient is not safe to discharge at this time as patient continues to exhibit signs of precious, and express precious symptoms. Patient requires continued inpatient care because of current precious, and requires inpatient level of care to stabilize in order to no longer be a danger to himself/herself, gravely disabled due to mental illness. Patient could benefit from continued inpatient hospitalization for crisis stabilization, safety, and medication evaluation. Patient could benefit from trial of Depakote ER for bipolar maintenance, to reduce likelihood of rehospitalization. Plan: (1) Psychotropic medications: After reviewing options, risks, and benefits patient agrees to continue current medications with following changes: Begin trial of Depakote ER 1,500 mg po QHS. No other medication changes at this time as more time is needed to determine ongoing tolerability and efficacy. Plan is to continue to observe patient for response and side effects from medications, and ongoing monitoring and evaluation. (2) Review with patient informed consent and recommendations for psychotropic medication treatment listed below (3) Labs: VPA level AM (4) Therapy: continue milieu and group therapy (5) Further investigation including gathering information from patients relatives and review of past case records to inform treatment plan. (6) Safety/Wellness plan and follow-up outpatient appointments to be established prior to discharge. Next steps are for patient to meet with manager of care to plan a safe discharge plan and establish outpatient services for ongoing treatment. (7) Confer with inpatient treatment team regarding treatment plan. (8) Legal status: [facility] (9) Consider discharge on if patient is in stable condition, safe, and has a safe discharge plan. (10) Substance abuse interventions: alcohol/binge drinking PSYCHOTROPIC MEDICATION TREATMENT INFORMED CONSENT and RECOMMENDATIONS: Review nature of condition, diagnosis, and prognosis. Review nature and purpose of psychotropic medication treatment. Review type of psychotropic medications being ordered. Review risk and benefits of psychotropic medication treatment. Review probable length of time patient will need to take medications. Review risk and benefits of not undergoing psychotropic medication treatment. Review alternative treatments to psychotropic medications. Review psychotropic medications contraindications, drug-drug interactions, side effects, and importance of reporting any side effects to a psychiatric provider or nurse during inpatient hospitalization, and upon discharge to patients psychiatric outpatient provider, primary care provider, or other health infant caregiver. Review importance of asking a nurse, psychiatric provider, or primary care provider any questions or problems concerning the psychotropic medications. Verify patient understands the information that has been provided, and understands, accepts, and agrees to psychotropic medications. Review patients safety plan and importance of patient to report to staff while hospitalized if patient is ever a danger to self/others, or unable to care for self, and upon discharge, the importance for patient to contact [facility] or [facility], or go to the nearest emergency room, if patient is ever a danger to self/others, or unable to care for self. Recommend that upon discharge patient establish medication management treatment with a psychiatric provider, establishes routine therapy appointments, and follow-up with primary care provider. Verify patient understands and agrees to these recommendations. 12/21/17 09:14 Subjective: Following up with patient for evaluation of precious and safety. Patient reports, "I am feeling better, calmer now, slept well last night." Patient expresses the following psychiatric symptoms severe anxiety, irritable. Patient reports taking medications as prescribed, and describes response to medications as good. Patient does not report undesirable side effects from the medications, and agrees to continue current medications. Patient reports appetite as good, and reports eating all meals. Patient describes 8 hours of sleep. Patient agrees to trial of Depakote ER 1,500 mg po QHS for bipolar maintenance. Patient reports he was on lithium in the past, however, experienced undesirable side effects. Patient agrees with plan to be on a mood stabilizer, Depakote, and to continue this medication after discharge to prevent decompensation, precious , and likelihood of rehospitalization. Patient agrees he needs to be "on" a mood stabilizer to prevent precious episodes in the future. Objective: Vital Signs Temp Pulse Resp BP Pulse Ox 36.4 C 87 16 121/70 H 96 12/21/17 06:00 12/21/17 06:00 12/21/17 06:00 12/21/17 06:00 12/21/17 06:00 NURSING REPORT: Consulted with nursing for update on patients progress in treatment. Nurses report patient is engaged in treatment, is attending groups, slept 7 hours, expresses the following psychiatric symptoms: severe anxiety, irritable; exhibits the following psychiatric symptoms: irritable, agitated, intrusive, hyper-talkative; is eating all meals, is attending to ADLs, is taking medications as prescribed with no report of side effects, with no s/s of EPS/akathisia, and denies SI/HI, denies A/V hallucinations, denies delusions. MSE: The patient presents casually dressed and with good hygiene, and looks stated age. Patient is sitting, posture is upright, and position is tense. Patient appears awake, alert, and responds appropriately and reasonably during interview. Patient is engaged, relates fairly well to interviewer, and emotional facial expression is appropriate to situation and changes appropriately with topic. Patient is cooperative, makes comfortable eye contact , and movements are voluntary, deliberate, coordinated, and smooth and even with no inappropriate movements. 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 Patient reports mood as euthymic. Patients affect is expansive, and incongruent with mood. Patient has linear and logical thinking, with no loose associations, thought blocking, or concrete thinking. Patient's though process is tangential. Patient denies suicidal and homicidal ideation, and denies hallucinations and delusions. Patient appears to be a poor historian with poor judgement and poor insight into current condition. Patient has no apparent dysfunction in recent or remote memory noted, and no evidence of gross cognitive dysfunction noted at any point during the interview. SUBSTANCE ABUSE BRIEF INTERVENTION: Brief intervention regarding the risks of alcohol abuse is provided to patient with goal to reduce the risk of harm that could result from the continued use of alcohol with the general aim to investigate the problem, raise awareness of problem, develop a solution with the patient, recommend a specific change or activity, and motivate the patient toward change. Assess substance abuse behavior and give supportive advice about harm reduction, recommend a reduction in hazardous/at-risk consumption patterns, and facilitate referrals for additional specialized treatment with career technical education teacher. Intermediate goal is for the patient to quit use of substances and attend AA meetings and OP substance abuse treatment. Intervention focus on intermediate goals to allow for more immediate success in the treatment process to keep the patient motivated. Review following with patient: Alcohol/Binge Drinking risks: short-term: injuries, violence, alcohol poisoning, risky sexual behaviors. Long-term: high blood pressure, stroke, liver disease, digestive problems, cancer, learning and memory problems, depression and anxiety, social problems, and alcohol dependence. - Time Spent With Patient Time Spent With Patient: 15 minutes, met with patient individually. - Pending Discharge Pending Discharge Within 24 Hours: No Pending Discharge Within 48 Hours: No ICD10 Worksheet Patient Problems: Problems Problem Status Onset Bipolar I disorder, severe, current or most recent episode manic, with anxious distress Acute Alcoholic liver disease, unspecified Acute History of DVT (deep vein thrombosis) Acute Acute appendicitis Acute Psychosis Acute
[2017-12-21] MEDS: OLANZapine DISINTEGR 10 MG TAB PO PRN (10:19)
--- NOTE | 2017-12-21 12:26 | ASMTBHDC ---
Notes Note: Notes: CC confirmed client's discharge appts: Follow up with: [facility] [address] [place] [address], [place] [address] Pete Singh - Therapist Next Appt: January 06 (01/06/18) at 9:30am Dr. Hernandez - Psychiatrist Next Appt: January 06 (01/06/18) at 9am Date Signed: 12/21/2017 12:23 PM Electronically Signed By:Jose Guzman
--- NOTE | 2017-12-21 15:02 | ASMTCMCOM ---
CM Note CM Note Notes: CC spoke to client's therapist at length. She noted that she last saw client on 12/10 in which he noted, "I stop taking my medications two weeks ago." Therapist noted that he presented as hyper-manic but stable and "nothing I could hold him on." TX asked to speak to client; therapist noted her contact number . TX moved her schedule to see client on 12/29 at 1pm. Date Signed: 12/21/2017 03:02 PM Electronically Signed By:Jose Gumzan
[2017-12-21] MEDS: DIVALPROEX ER 500 MG TAB PO SCH (22:06)
[2017-12-21] MEDS: lamoTRIgine 25 MG TAB PO SCH (22:06)
[2017-12-22] MEDS: IBUPROFEN 600 MG TAB PO PRN ×2 (04:40→13:53)
[2017-12-22] MEDS: NICOTINE POLACRILEX 2 MG GUM B PRN ×8 (04:40→17:53)
[2017-12-22] MEDS: LORazepam 0.5 MG TAB PO PRN ×3 (04:41→18:41)
--- NOTE | 2017-12-22 07:34 | SOAPPROG ---
SOAP Progress Note Assessment/Plan: Assessment: Bipolar I Disorder, severe, most recent precious, with anxious distress, complicated by substance use. Alcohol use disorder, severe. Slight improvement noted (see subjective/objective note). Patient is not safe to discharge at this time as patient continues to exhibit signs of precious, and express precious symptoms. Patient requires continued inpatient care because of current precious, and requires inpatient level of care to stabilize in order to no longer be gravely disabled due to mental illness. Patient could benefit from continued inpatient hospitalization for crisis stabilization, safety, and medication evaluation. Patient could benefit from trial of Depakote ER for bipolar maintenance, to reduce likelihood of rehospitalization. Based on patients current presentation likely discharge end of the week, or Thursday. Plan: (1) Psychotropic medications: After reviewing options, risks, and benefits patient agrees to continue current medications with following changes: Increase Gabapentin to 600 mg po TID, decrease Ativan to 0.5 mg po Q8HRS. No other medication changes at this time as more time is needed to determine ongoing tolerability and efficacy. Plan is to continue to observe patient for response and side effects from medications, and ongoing monitoring and evaluation. (2) Review with patient informed consent and recommendations for psychotropic medication treatment listed below (3) Labs: VPA level AM; repeat liver function test (4) Therapy: continue milieu and group therapy (5) Further investigation including gathering information from patients relatives and review of past case records to inform treatment plan. (6) Safety/Wellness plan and follow-up outpatient appointments to be established prior to discharge. Next steps are for patient to meet with memory care director to plan a safe discharge plan and establish outpatient services for ongoing treatment. (7) Confer with inpatient treatment team regarding treatment plan. (8) Legal status: [facility] (9) Consider discharge on if patient is in stable condition, safe, and has a safe discharge plan. (10) Substance abuse interventions: cannabis and alcohol/binge drinking PSYCHOTROPIC MEDICATION TREATMENT INFORMED CONSENT and RECOMMENDATIONS: Review nature of condition, diagnosis, and prognosis. Review nature and purpose of psychotropic medication treatment. Review type of psychotropic medications being ordered. Review risk and benefits of psychotropic medication treatment. Review probable length of time patient will need to take medications. Review risk and benefits of not undergoing psychotropic medication treatment. Review alternative treatments to psychotropic medications. Review psychotropic medications contraindications, drug-drug interactions, side effects, and importance of reporting any side effects to a psychiatric provider or nurse during inpatient hospitalization, and upon discharge to patients psychiatric outpatient provider, primary care provider, or other health day care provider. Review importance of asking a nurse, psychiatric provider, or primary care provider any questions or problems concerning the psychotropic medications. Verify patient understands the information that has been provided, and understands, accepts, and agrees to psychotropic medications. Review patients safety plan and importance of patient to report to staff while hospitalized if patient is ever a danger to self/others, or unable to care for self, and upon discharge, the importance for patient to contact [facility] or [facility], or go to the nearest emergency room, if patient is ever a danger to self/others, or unable to care for self. Recommend that upon discharge patient establish medication management treatment with a psychiatric provider, establishes routine therapy appointments, and follow-up with primary care provider. Verify patient understands and agrees to these recommendations. 12/22/17 07:29 Subjective: Following up with patient for evaluation of precious and safety. Patient reports, "Feel good, Depakote was okay, no side effects. Can I use the [employer] machine? How about some yoga, its time for yoga." Patient expresses the following psychiatric symptoms severe anxiety. Patient reports taking medications as prescribed, and describes response to medications as good. Patient does not report undesirable side effects from the medications, and agrees to continue current medications. Patient reports appetite as good, and reports eating all meals. Patient describes 8 hours of sleep. Patient agrees to increase Gabapentin to 600 mg po TID to target ongoing anxiety, and to taper Ativan to 0.5 mg po Q8HRS with objective to discontinue prior to discharge. Objective: Vital Signs Temp Pulse Resp BP Pulse Ox 36.4 C 97 15 97/52 L 96 12/22/17 06:00 12/22/17 06:00 12/22/17 06:00 12/22/17 06:00 12/22/17 06:00 NURSING REPORT: Consulted with nursing for update on patients progress in treatment. Nurses report patient is engaged in treatment, is attending groups, slept 7 hours and requested Zyprexa Zydis 10 mg at bedtime, expresses the following psychiatric symptoms: severe anxiety; exhibits the following psychiatric symptoms: severely anxious, intrusive, hyper-talkative, hyperactive on the unit, pacing halls, distractible; is eating all meals, is attending to ADLs, is taking medications as prescribed with no report of side effects, with no s/s of EPS/akathisia, and denies SI/HI, denies A/V hallucinations, denies delusions. Patient required Ativan 1 mg twice yesterday, and received Ativan 1 mg this AM for severe anxiety/agitation. MSE: The patient presents casually dressed and with good hygiene, and looks stated age. Patient is sitting, posture is upright, and position is tense. Patient appears awake, alert, and responds appropriately and reasonably during interview. Patient is engaged, relates well to interviewer, and emotional facial expression is appropriate to situation and changes appropriately with topic. Patient is cooperative, makes comfortable eye contact, and movements are voluntary, deliberate, coordinated, and smooth and even with no inappropriate movements. Patient appears distractible during interview. 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 Patient reports mood as euthymic. Patients affect is expansive, and incongruent with mood. Patients thought process is linear and logical thinking, with some loose associations, tangential thought. No other signs of formal thought disorder. Patient denies suicidal and homicidal ideation, and denies hallucinations and delusions. Patient appears to be a poor historian with poor judgement and poor insight into current condition. Patient has no apparent dysfunction in recent or remote memory noted, and no evidence of gross cognitive dysfunction noted at any point during the interview. SUBSTANCE ABUSE BRIEF INTERVENTION: Brief intervention regarding the risks of alcohol abuse is provided to patient with goal to reduce the risk of harm that could result from the continued use of alcohol with the general aim to investigate the problem, raise awareness of problem, develop a solution with the patient, recommend a specific change or activity, and motivate the patient toward change. Assess substance abuse behavior and give supportive advice about harm reduction, recommend a reduction in hazardous/at-risk consumption patterns, and facilitate referrals for additional specialized treatment with managed care coordinator. Intermediate goal is for the patient to quit use of substances and attend AA meetings and OP substance abuse treatment. Intervention focus on intermediate goals to allow for more immediate success in the treatment process to keep the patient motivated. Review following with patient: Alcohol/Binge Drinking risks: short-term: injuries, violence, alcohol poisoning, risky sexual behaviors. Long-term: high blood pressure, stroke, liver disease, digestive problems, cancer, learning and memory problems, depression and anxiety, social problems, and alcohol dependence. Patient agrees to outpatient substance abuse treatment/therapy. - Time Spent With Patient Time Spent With Patient: 15 minutes, met with patient individually. - Pending Discharge Pending Discharge Within 24 Hours: No Pending Discharge Within 48 Hours: Yes Pending Discharge Date: 12/24/17 Pending Discharge Time: 11:00 ICD10 Worksheet Patient Problems: Problems Problem Status Onset Alcoholic liver disease, unspecified Acute Bipolar I disorder, severe, current or most recent episode manic, with anxious distress Acute Psychosis Acute Acute appendicitis Acute History of DVT (deep vein thrombosis) Acute
[2017-12-22] MEDS: GABAPENTIN 300 MG CAP PO SCH ×3 (08:33→20:45)
[2017-12-22] MEDS: RIVAROXABAN 20 MG TAB PO SCH (08:34)
[2017-12-22] MEDS: OLANZapine DISINTEGR 10 MG TAB PO PRN ×2 (09:13→14:02)
--- NOTE | 2017-12-22 13:47 | ASMTCMCOM ---
CM Note CM Note Notes: Client continues to improve on the unit; prepare discharge for this after Depokate level is confirmed.* Date Signed: 12/22/2017 01:46 PM Electronically Signed By:Jose Guzman
[2017-12-22] MEDS: lamoTRIgine 25 MG TAB PO SCH (20:45)
[2017-12-22] MEDS: DIVALPROEX ER 500 MG TAB PO SCH (20:45)
[2017-12-23] MEDS: IBUPROFEN 600 MG TAB PO PRN ×4 (00:55→19:00)
[2017-12-23] MEDS: OLANZapine DISINTEGR 10 MG TAB PO PRN ×3 (00:55→13:42)
[2017-12-23] MEDS: NICOTINE POLACRILEX 2 MG GUM B PRN ×11 (01:00→19:43)
[2017-12-23] MEDS: LORazepam 0.5 MG TAB PO PRN (02:34)
[2017-12-23 06:57] VITALS: BP 121/81
--- NOTE | 2017-12-23 07:34 | SOAPPROG ---
SOAP Progress Note Assessment/Plan: Assessment: Bipolar I Disorder, severe, most recent precious, with anxious distress, complicated by substance use. Alcohol use disorder, severe. Improvement noted ( see subjective/objective note). Patient is not safe to discharge at this time as patient continues to exhibit signs of precious, and express precious symptoms. Patient requires continued inpatient care because of current precious, and requires inpatient level of care to stabilize in order to no longer be gravely disabled due to mental illness. Patient could benefit from continued inpatient hospitalization for crisis stabilization, safety, and medication evaluation. Patient could benefit from trial of Depakote ER for bipolar maintenance, to reduce likelihood of rehospitalization. Based on patients current presentation likely discharge . Plan: (1) Psychotropic medications: After reviewing options, risks, and benefits patient agrees to continue current medications with following changes: Schedule Zyprexa Zydis 10 mg po QHS. No other medication changes at this time as more time is needed to determine ongoing tolerability and efficacy. Plan is to continue to observe patient for response and side effects from medications, and ongoing monitoring and evaluation. (2) Review with patient informed consent and recommendations for psychotropic medication treatment listed below (3) Labs: VPA level AM; repeat liver function test AM (4) Therapy: continue milieu and group therapy (5) Further investigation including gathering information from patients relatives and review of past case records to inform treatment plan. (6) Safety/Wellness plan and follow-up outpatient appointments to be established prior to discharge. Next steps are for patient to meet with managed care specialist to plan a safe discharge plan and establish outpatient services for ongoing treatment. (7) Confer with inpatient treatment team regarding treatment plan. (8) Legal status: [facility] (9) Consider discharge on if patient is in stable condition, safe, and has a safe discharge plan (10) Substance abuse interventions: cannabis and alcohol/binge drinking PSYCHOTROPIC MEDICATION TREATMENT INFORMED CONSENT and RECOMMENDATIONS: Review nature of condition, diagnosis, and prognosis. Review nature and purpose of psychotropic medication treatment. Review type of psychotropic medications being ordered. Review risk and benefits of psychotropic medication treatment. Review probable length of time patient will need to take medications. Review risk and benefits of not undergoing psychotropic medication treatment. Review alternative treatments to psychotropic medications. Review psychotropic medications contraindications, drug-drug interactions, side effects, and importance of reporting any side effects to a psychiatric provider or nurse during inpatient hospitalization, and upon discharge to patients psychiatric outpatient provider, primary care provider, or other health body care manager. Review importance of asking a nurse, psychiatric provider, or primary care provider any questions or problems concerning the psychotropic medications. Verify patient understands the information that has been provided, and understands, accepts, and agrees to psychotropic medications. Review patients safety plan and importance of patient to report to staff while hospitalized if patient is ever a danger to self/others, or unable to care for self, and upon discharge, the importance for patient to contact [facility] or [facility], or go to the nearest emergency room, if patient is ever a danger to self/others, or unable to care for self. Recommend that upon discharge patient establish medication management treatment with a psychiatric provider, establishes routine therapy appointments, and follow-up with primary care provider. Verify patient understands and agrees to these recommendations. 12/23/17 07:33 Subjective: Following up with patient for evaluation of precious and safety. Patient reports, "Feeling much better, woke up in the middle of the night last night, but took a PRN medication and was able to fall back to sleep. More rested now. My outpatient doctor is going to call you today to discuss my treatment." Patient expresses the following psychiatric symptoms moderate anxiety. Patient reports taking medications as prescribed, and describes response to medications as good. Patient does not report undesirable side effects from the medications, and agrees to continue current medications. Patient reports appetite as good, and reports eating all meals. Patient describes 8 hours of sleep. Patient agrees to discontinue Ativan in preparation of discharge tomorrow. Patient agrees to schedule Zyprexa Zydis 10 mg po QHS as agrees he has needed at bedtime for sleep/agitation. Objective: Vital Signs Temp Pulse Resp BP Pulse Ox 36.8 C 70 15 121/81 H 98 12/23/17 06:00 12/23/17 06:00 12/23/17 06:00 12/23/17 06:00 12/23/17 06:00 NURSING REPORT: Consulted with nursing for update on patients progress in treatment. Nurses report patient is engaged in treatment, is attending groups, slept 8 hours and requested Zyprexa Zydis 10 mg at bedtime, expresses the following psychiatric symptoms: moderate anxiety; exhibits the following psychiatric symptoms: moderate anxiety; is eating all meals, is attending to ADLs, is taking medications as prescribed with no report of side effects, with no s/s of EPS/akathisia, and denies SI/HI, denies A/V hallucinations, denies delusions. Patient has required less Ativan for severe anxiety/agitation. MSE: The patient presents casually dressed and with good hygiene, and looks stated age. Patient is sitting, posture is upright, and relaxed. Patient appears awake, alert, and responds appropriately and reasonably during interview. Patient is engaged, relates well to interviewer, and emotional facial expression is appropriate to situation and changes appropriately with topic. Patient is cooperative, makes comfortable eye contact, and movements are voluntary, deliberate, coordinated, and smooth and even with no inappropriate movements. Patient appears attentive during interview. Patient makes laryngeal sounds effortlessly and shares conversation appropriately; pace of conversation is appropriate, and stream of talking is fluent; articulation is clear and understandable; word choice is effortless and appropriate for education level; completes sentences, rate and volume are normal. Patient reports mood as euthymic. Patients affect is euthymic, and congruent with mood. Patients thought process is linear and logical thinking, with no loose associations, no tangential thought. No other signs of formal thought disorder. Patient denies suicidal and homicidal ideation, and denies hallucinations and delusions. Patient appears to be a fair historian with fair judgement and fair insight into current condition. Patient has no apparent dysfunction in recent or remote memory noted, and no evidence of gross cognitive dysfunction noted at any point during the interview. SUBSTANCE ABUSE BRIEF INTERVENTION: Brief intervention regarding the risks of alcohol abuse is provided to patient with goal to reduce the risk of harm that could result from the continued use of alcohol with the general aim to investigate the problem, raise awareness of problem, develop a solution with the patient, recommend a specific change or activity, and motivate the patient toward change. Assess substance abuse behavior and give supportive advice about harm reduction, recommend a reduction in hazardous/at-risk consumption patterns, and facilitate referrals for additional specialized treatment with care associate. Intermediate goal is for the patient to quit use of substances and attend AA meetings and OP substance abuse treatment. Intervention focus on intermediate goals to allow for more immediate success in the treatment process to keep the patient motivated. Review following with patient: Alcohol/Binge Drinking risks: short-term: injuries, violence, alcohol poisoning, risky sexual b behaviors. Long-term: high blood pressure, stroke, liver disease, digestive problems, cancer, learning and memory problems, depression and anxiety, social problems, and alcohol dependence. Patient responds well to intervention, and agrees to follow-up for outpatient substance abuse treatment. - Time Spent With Patient Time Spent With Patient: 15 minutes, met with patient individually. - Pending Discharge Pending Discharge Within 24 Hours: Yes Pending Discharge Within 48 Hours: No Pending Discharge Date: 12/24/17 Pending Discharge Time: 11:00 ICD10 Worksheet Patient Problems: Problems Problem Status Onset Alcoholic liver disease, unspecified Acute Bipolar I disorder, severe, current or most recent episode manic, with anxious distress Acute Psychosis Acute Acute appendicitis Acute History of DVT (deep vein thrombosis) Acute
[2017-12-23] MEDS: GABAPENTIN 300 MG CAP PO SCH ×3 (08:03→20:18)
[2017-12-23] MEDS: RIVAROXABAN 20 MG TAB PO SCH (08:03)
--- NOTE | 2017-12-23 15:34 | ASMTCMCOM ---
CM Note CM Note Notes: Client remains positive on the unit, highen mood, high motavation for change. Client reports no issues with sleep and recieving at least "7 hours a night." Additionally, client has a depakote level check in the morning and then discharge to out-patient treatment team with [facility]. Date Signed: 12/23/2017 03:33 PM Electronically Signed By:Jose Guzman
[2017-12-23] MEDS: lamoTRIgine 25 MG TAB PO SCH (20:18)
[2017-12-23] MEDS: DIVALPROEX ER 500 MG TAB PO SCH (20:18)
[2017-12-23] MEDS ORDERED: OLANZapine DISINTEGR 10 MG TAB PO SCH (21:00)
[2017-12-24] MEDS: IBUPROFEN 600 MG TAB PO PRN ×2 (02:05→08:03)
[2017-12-24] MEDS: OLANZapine DISINTEGR 10 MG TAB PO PRN ×2 (02:05→08:17)
[2017-12-24] MEDS: NICOTINE POLACRILEX 2 MG GUM B PRN ×8 (02:15→14:03)
[2017-12-24] MEDS: GABAPENTIN 300 MG CAP PO SCH (08:03)
[2017-12-24] MEDS: RIVAROXABAN 20 MG TAB PO SCH (08:04)
--- NOTE | 2017-12-24 09:52 | BDS ---
REASON FOR ADMISSION: From the ED note dated 12/17/2017, the patient presented to the ED with an unknown medical history with bizarre, aggressive and agitated behavior. The [facility] was found [facility] [place] [facility], running through the bookstore, acting bizarre and screaming. Police made contact with him and put him in handcuffs, and he was brought to the emergency room by EMS. Upon arrival to the emergency room, patient was screaming, agitated, and using profanities. The patient appeared to be under the influence of a substance. The patient was admitted involuntarily on an M1 hold due to being gravely disabled due to a mental illness. The patient was admitted for safety, crisis stabilization, and medication management. ADMITTING DIAGNOSES: Bipolar 1 disorder, severe, most recent episode manic with anxious distress; alcohol use disorder, severe, in a controlled environment. ADMISSION PHYSICAL EXAM: The patient was seen for a history and physical on , for medical clearance for inpatient Behavioral Health hospitalization. The patient was medically cleared for inpatient psychiatric hospitalization and treatment. For further details, please see History and Physical dated 12/18. ADMISSION LABS: CBC from 12/17/2017, within normal limits, except absolute monocytes were elevated at 0.95. Chemistry on 12/17/2017, was within normal limits, except carbon dioxide was low at 19, and anion gap was elevated at 17. Hemoglobin A1c from 12/18/2017 was 5.6. Liver function tests from 12/18/2017, within normal limits, except AST was elevated at 424, and ALT was elevated at 147. Liver function tests were repeated on 12/19/2017, and were within normal limits, except AST was 192. This is a significant decrease from 424 the day prior, and ALT remained the same at 147, from 12/19/2017. Total protein was low at 5.2, and albumin was low at 3.0. Fasting lipid panel from 12/19/2017, within normal limits, except cholesterol was low at 139. LDL cholesterol calculated was low at 63, and non-HDL cholesterol was low at 80. The toxicology screen from 12/17/2017, was negative for all substances of abuse. Ethyl alcohol was elevated at 15. Valproic acid level from 12/24/2017 was 75.5. Liver function tests were repeated on 12/24/2017, WNL except ALT elevated at 94 and Total Protein low at 6.1 MAJOR PROCEDURES OR TESTS: None. HOSPITAL COURSE: The most prominent symptoms and behaviors while the patient was here were signs and symptoms of ramona, including hyperactivity, hyper talkative, pressured speech. Patient was tangential. Target symptoms during hospitalization: Ramona and mood stability. Treatment modalities utilized were milieu and group therapy. Depakote ER 1500 mg was started to target mood symptoms, was tolerated with no report of side effects and with good response. The patient's valproic acid at this dose from 12/24/2017 was 75.5. Zyprexa 10 mg p.o. q.h.s. was started to target mood symptoms, was tolerated with no report of side effects and with fair response. Zyprexa Zydis 10 mg p.o. q.4 hours p.r.n. was started to target acute agitation, was tolerated with no report of side effects and with good response. The patient did require the p.r.n. of Zyprexa Zydis 1 time per day, and at discharge, this was discussed with the patient, and patient agreed to Zyprexa 20 mg p.o. q.h.s. at time of discharge. Gabapentin 300 mg p.o. t.i.d. was started to target anxiety symptoms , was tolerated with no report of side effects and with fair response. Medication was titrated to 600 mg p.o. t.i.d., was tolerated with no report of side effects and with good response. Lamictal 25 mg p.o. q.h.s. was started to target mood symptoms, was tolerated with no report of side effects. Patient to continue to titrate this medication under the treatment of an outpatient psychiatric provider after discharge. The patient's Xarelto 20 mg p.o. daily was continued, was tolerated with no report of side effects. The patient did use Nicorette gum 2 mg as needed throughout his stay, and patient to continue to use Nicorette gum after discharge for nicotine dependence, nicotine withdrawal. The patient has improved considerably, with no psychiatric symptoms and no psychiatric symptoms expressed at time of discharge. The patient reports he has improved since admission. States to be in stable condition, feels safe to discharge, and he contracts for safety. Patient's response to treatment was good. There were no adverse or unexpected results of treatment. The patient was safe throughout his stay, active in treatment, attended and engaged in groups, and was appropriate with staff and other patients. The patient met with this SHEEP FARMER and the entire treatment team, including nurse motor hotel manager, psychiatrist, pharmacy care coordinator and therapist at time of discharge to assess safety to discharge and review treatment plan and discharge plan. The treatment team consensus is the patient is in stable condition and is safe to discharge today. CONDITION ON DISCHARGE: Patient is in stable condition and is no longer a danger to self or others, and is not gravely disabled due to mental illness. Patient is no longer in need of inpatient level of care, and can be safely and effectively treated within the community. The patients level of risk at time of discharge is low. MSE: The patient is casually dressed and with good hygiene , and looks stated age. Patient is sitting, posture is upright, and position is relaxed. Patient appears awake, alert, and responds appropriately and reasonably during interview. Patient is engaged, relates well to interviewer, and emotional facial expression is appropriate to situation and changes appropriately with topic. Patient is cooperative, makes comfortable eye contact , and movements are voluntary, deliberate, coordinated, and smooth and even with no inappropriate movements. Patient makes laryngeal sounds effortlessly and shares conversation appropriately; pace of conversation is appropriate, and stream of talking is fluent; articulation is clear and understandable; word choice is effortless and appropriate for education level; completes sentences, occasionally pausing to think; rate and volume are appropriate for interview and setting. Patient reports mood as euthymic. Patients affect is stable with full variable range, congruent with mood, and appropriate to speech and circumstances. Patient has linear and logical thinking, with no loose associations, tangential thought, thought blocking, concrete thinking, or any other signs of formal thought disorder. Patient denies suicidal and homicidal ideation, and denies hallucinations and delusions. Patient appears to be a reliable historian with sound judgement and good insight into current condition. Patient has no apparent dysfunction in recent or remote memory noted , and no evidence of gross cognitive dysfunction noted at any point during the interview. DISCHARGE DIAGNOSES: Bipolar I disorder, severe, most recent episode manic with anxious distress; alcohol use disorder, severe, in a controlled environment. CURRENT MEDICATIONS: At time of discharge, options, risks and benefits were reviewed with the patient. The patient requested prescriptions for 30 days for the following medications: Depakote ER 1500 mg p.o. q.h.s., gabapentin 600 mg p.o. t.i.d., Lamictal 25 mg p.o. q.h.s., Zyprexa 20 mg p.o. q.h.s., and Xarelto 20 mg p.o. daily. These prescriptions were reviewed with the patient to ensure accuracy and patient understanding at time of discharge. DISPOSITION: The patient left hospital independently and voluntarily and plans to live with his girlfriend after discharge. FOLLOWUP: clinical nursing coordinator reports the appropriate outpatient follow-up services have been established and outpatient appointments have been scheduled. The patient received written instructions with times and dates of outpatient follow-up appointments. The following follow-up recommendations were provided to the patient at discharge: Continue psychotropic medications as prescribed and attend appointments as scheduled. Report any side effects to a psychiatric outpatient provider, a primary care provider, or other health care clinician. Address any questions or problems concerning the psychotropic medications with a psychiatric outpatient provider, a primary care provider, or other health care clinician. Contact [facility] or [facility], or go to the nearest emergency room, if you are ever a danger to yourself/others, or unable to care for yourself. As soon as possible, establish a routine medication management treatment with a psychiatric provider, establish routine therapy appointments, and follow-up with a primary care provider. SUBSTANCE ABUSE BRIEF INTERVENTION: Brief intervention regarding the risks of alcohol abuse is provided to patient with goal to reduce the risk of harm that could result from the continued use of alcohol with the general aim to investigate the problem, raise awareness of problem, develop a solution with the patient, recommend a specific change or activity, and motivate the patient toward change. Assess substance abuse behavior and give supportive advice about harm reduction, recommend a reduction in hazardous/at-risk consumption patterns, and facilitate referrals for additional specialized treatment with pharmacy care coordinator. Intermediate goal is for the patient to quit use of substances and attend AA meetings and OP substance abuse treatment. Intervention focus on intermediate goals to allow for more immediate success in the treatment process to keep the patient motivated. Review following with patient: Alcohol/Binge Drinking risks: short-term: injuries, violence, alcohol poisoning, risky sexual behaviors. Long-term: high blood pressure, stroke, liver disease, digestive problems, cancer, learning and memory problems, depression and anxiety, social problems, and alcohol dependence. SUBSTANCE ABUSE TREATMENT REFERRAL: Patient referred to his outpatient provider for continued treatment related to alcohol use disorder. LEGAL COURSE: The patient was admitted on an M1 hold. The patient was placed on a short-term certification during his hospitalization. Patient improved significantly and no longer needed to be on a short-term certification. Patient discharged today voluntarily and independently. ATTITUDE AT TIME OF DISCHARGE: The patients attitude was positive at time of discharge, and patient reports looking forward to discharging today. The patient reports he feels safe to discharge, is no longer a danger to himself or others, is in stable condition, and contracts for safety. Patient states he will continue medications as prescribed, and establish medication management treatment with an outpatient provider after discharge. Patient reports he understands the information that has been provided to him, and he understands, accepts, and agrees to psychotropic medications. Patient describes internal protective factors as the coping skills he has learned while hospitalized here, and he plans to continue to practice these coping skills after discharge. Patient reports external protective factors as family. FAMILY MEETING: This SHEEP FARMER and pharmacy care coordinator, at patient's requested, met with patient's girlfriend by phone to assess safety of discharge and review discharge plan. Patient's girlfriend reports patient is safe to discharge and has a safe discharge plan. LABS AND STUDIES: There were no pending labs or studies at time of discharge. ADVANCE DIRECTIVES: There were no advance directives on file, and the patient was full code during hospitalization. The following psychotropic medication treatment informed consent and recommendations were provided to the patient at time of discharge. Patient reports he understands, accepts, and agrees to the information that has been provided. PSYCHOTROPIC MEDICATION TREATMENT INFORMED CONSENT and RECOMMENDATIONS: Review nature of condition, diagnosis, and prognosis. Review nature and purpose of psychotropic medication treatment. Review type of psychotropic medications being prescribed. Review risk and benefits of psychotropic medication treatment. Review probable length of time will need to take medications. Review risk and benefits of not undergoing psychotropic medication treatment. Review alternative treatments to psychotropic medications. Review psychotropic medications contraindications, side effects, and importance of reporting any side effects to a psychiatric provider, primary care provider, or other health care clinician. Review importance of her asking a psychiatric provider or primary care provider any questions or problems concerning the psychotropic medications. Review safety plan and the importance to contact [facility] [place] [facility] or [facility] , or go to the nearest emergency room, if ever a danger to yourself/others, or unable to care for yourself. Recommend upon discharge to establish routine medication management treatment with a psychiatric provider, establish routine therapy appointments, and follow-up with a primary care provider. Verify patient understands, accepts, and agrees to the information that has been provided. /[id number]/MODL [id number]
== END 2017-12-24 15:05 | disposition home or self-care (01) | DRG 885 ==
LOC: EDUNIT# → BBEH 12-18 14:25
PROVIDERS: ADMIT Registered Nurse; ATTEND Registered Nurse
DX: F31.2 Bipolar disorder, current episode manic severe with psychotic features (principal); Z72.0 Tobacco use; F10.20 Alcohol dependence, uncomplicated
CPT/HCPCS: 80305; G0480; J1630